=== PATIENT | female | born 1960 | race Caucasian/White ===

== ENCOUNTER → 2018-01-28 10:54 | Outpatient (CLI) | payer OTHER, SELFPAY ==
[2018-01-28 11:11] LABS: Bacteria Urine None Seen
[2018-01-28 12:41] LABS: Appearance Urine UA CLEAR; Bilirubin Urine UA NEGATIVE (NEGATIVE); Color Urine UA YELLOW; Glucose Urine UA NEGATIVE (Normal); Ketones Urine UA NEGATIVE (NEGATIVE); Leukocyte Esterase Urine UA NEGATIVE (NEGATIVE); Nitrite Urine UA Negative (Negative); Occult Blood Urine UA NEGATIVE (Negative); Protein Urine UA NEGATIVE (Negative); Urobilinogen Urine UA 0.2 E.U./dL (0.2)
[2018-01-28 12:55] LABS: Culture Indicated Urine Cult Not Indicated; RBC Urine 0-1/HPF (0-5/HPF); WBC Urine 0-1/HPF (0-5/HPF)
[2018-01-28 13:14] LABS: Add Manual Diff / Slide Review NO; Basophils Percent Auto 1.5 % (0-2); Eosinophils Percent Auto 2.7 % (2-4); Hematocrit 39.4 % (36-46); Hemoglobin 13.5 g/dL (12.0-16.0); Lymphocytes Percent Auto 18.9 % (25-40); Mean Corpuscular HGB Conc 34.3 % (30-36); Mean Corpuscular Hemoglobin 30.6 PG (26-34); Mean Corpuscular Volume 89.2 fL (80-100); Monocytes Percent Auto 8.4 % (3-14); Neutrophils Absolute Auto 2700 /uL (3000-5900); Neutrophils Percent Auto 68.5 % (50-75); Platelet Count 249 X10^3/uL (150-400); Red Blood Cell Count 4.42 X10^6/uL (4.0-5.2); Red Cell Distribution Width 12.8 % (11.6-14.8)
[2018-01-28 13:41] LABS: Alanine Aminotransferase 61 IU/L (9-52); Albumin Globulin Ratio 1.3 (1.0-2.8); Alkaline Phosphatase 54 U/L (38-126); Aspartate Aminotransferase 43 IU/L (14-36); Bilirubin Total 0.7 mg/dL (0.2-1.3); Blood Urea Nitrogen 14 mg/dL (7-17); Calcium 9.2 mg/dL (8.4-10.2); Carbon Dioxide 33 mmol/L (22-32); Chloride 93 mmol/L (98-107); Estimated Glomerular Filt Rate > 60.0 mL/min (>60); Glucose 82 mg/dL (70-100); HEMOLYSIS < 15 (0-50); Potassium 3.9 mmol/L (3.4-5.1); Sodium 134 mmol/L (137-145)
[2018-01-30 13:37] LABS: CCP Antibody (IgG) < 16 Units (< 20)
== END ==
PROVIDERS: PCP Family Medicine; Visit Provider Family Medicine
DX: G35 Multiple sclerosis (principal); N39.0 Urinary tract infection, site not specified
CPT/HCPCS: 36415; 80053; 81001; 83516; 85025; 87798

== ENCOUNTER → 2018-06-05 07:55 | Outpatient (CLI) | payer OTHER, SELFPAY ==
--- NOTE | 2018-06-05 07:56 | DI.US.S_ITS ---
PROCEDURE: US ABDOMEN COMPLETE INDICATIONS: RIGHT UPPER QUADRANT PAIN TECHNIQUE: Real-time scanning was performed of the abdominal and retroperitoneal organs, with image documentation. COMPARISON: None. FINDINGS: Liver: Liver is normal in size and homogeneous in echotexture. Gallbladder: No gallstones identified. Normal gallbladder wall. No pericholecystic fluid. Negative sonographic Silveira sign. Biliary ducts: Intrahepatic bile ducts are non-dilated. Extrahepatic bile duct caliber measures 3.8 mm. Normal is 6-7 mm or less in diameter, or 10 mm or less post-cholecystectomy. Pancreas: Visualized portions of the pancreas are sonographically normal. Spleen: Spleen is normal in size and homogeneous in echotexture. Kidneys: Kidneys are normal in size and echotexture. Right kidney measures 10.9 cm long; left kidney measures 10.1 cm long. No hydronephrosis or nephrolithiasis. No solid masses. Aorta: Visualized aorta is normal in caliber at less than 3 cm. Iliacs: Proximal common iliac arteries are normal in caliber at less than 2.5 cm. IVC: Intrahepatic inferior vena cava is patent. Miscellaneous: No free abdominal fluid. IMPRESSION: No source for right upper quadrant pain identified sonographically. Dictated by: Andrey PARKER Interpreted: Niko Ceja MD on 06/05/2018 at 8:37 Approved by: Niko Ceja M.D. on 06/05/2018 at 13:19
== END ==
PROVIDERS: PCP Family Medicine; Visit Provider Family Medicine
DX: R10.11 Right upper quadrant pain (principal)
CPT/HCPCS: 76700

== ENCOUNTER → 2018-07-31 15:01 | Outpatient (CLI) | payer OTHER, SELFPAY ==
[2018-07-31 15:19] LABS: RBC Urine None Seen (0-5/HPF)
[2018-07-31 16:00] LABS: Add Manual Diff / Slide Review NO; Basophils Percent Auto 1.2 % (0-2); Eosinophils Percent Auto 2.8 % (2-4); Hemoglobin 13.7 g/dL (12.0-16.0); Mean Corpuscular HGB Conc 33.5 % (30-36); Mean Corpuscular Hemoglobin 30.6 PG (26-34); Mean Corpuscular Volume 91.2 fL (80-100); Monocytes Percent Auto 10.5 % (3-14); Neutrophils Absolute Auto 2900 /uL (3000-5900); Neutrophils Percent Auto 61.5 % (50-75); Platelet Count 238 X10^3/uL (150-400); Red Blood Cell Count 4.49 X10^6/uL (4.0-5.2); Red Cell Distribution Width 13.5 % (11.6-14.8); White Blood Cell Count 4.8 X10^3/uL (4.5-11.0)
[2018-07-31 16:11] LABS: Alanine Aminotransferase 80 IU/L (9-52); Albumin 4.2 g/dL (3.5-5.0); Albumin Globulin Ratio 1.7 (1.0-2.8); Alkaline Phosphatase 57 U/L (38-126); Aspartate Aminotransferase 50 IU/L (14-36); Bilirubin Total 0.6 mg/dL (0.2-1.3); Bilirubin Unconjugated 0.4 mg/dL (0.0-1.1); Globulin 2.5 g/dL (1.7-4.1); HEMOLYSIS < 15 (0-50); Total Protein 6.7 g/dL (6.3-8.2)
[2018-07-31 16:23] LABS: Appearance Urine UA CLEAR; Bilirubin Urine UA NEGATIVE (NEGATIVE); Color Urine UA YELLOW; Glucose Urine UA NEGATIVE (Normal); Ketones Urine UA NEGATIVE (NEGATIVE); Leukocyte Esterase Urine UA NEGATIVE (NEGATIVE); Nitrite Urine UA NEGATIVE (Negative); Occult Blood Urine UA NEGATIVE (Negative); Protein Urine UA NEGATIVE (Negative); Urobilinogen Urine UA 0.2 E.U./dL (0.2); pH Urine UA 6.5 (4.5-8.0)
[2018-07-31 16:38] LABS: Bacteria Urine Occasional (0-1); Culture Indicated Urine Specimen Cultured; Squamous Epithelial Cell Urine 0-1 /HPF; WBC Urine 5-10/HPF (0-5/HPF)
[2018-08-02 13:53] LABS: Immunoglobulin A 174 mg/dL (81-463); Immunoglobulin M, Quantitative 66 mg/dL (48-271)
[2018-08-06 10:31] LABS: IgG Subclass 1 479 mg/dL (382-929); IgG Subclass 2 269 mg/dL (241-700); IgG Subclass 3 41 mg/dL (22-178); IgG Subclass 4 40.1 mg/dL (4.0-86.0); IgG Total 821 mg/dL (694-1618)
== END ==
PROVIDERS: PCP Family Medicine; Visit Provider Family Medicine
DX: G35 Multiple sclerosis (principal); Z79.899 Other long term (current) drug therapy
CPT/HCPCS: 80076; 81001; 82784; 85025; 87077; 87086; 87186

== ENCOUNTER → 2018-08-29 12:58 | Outpatient (CLI) | payer OTHER, SELFPAY ==
--- NOTE | 2018-08-29 | DI.MRI.S_ITS ---
PROCEDURE: MR HEAD/BRAIN WO CON INDICATIONS: multiple sclerosis TECHNIQUE: Non-contrast axial T1 spin echo, axial T2 fast spin echo, sagittal and axial FLAIR, coronal T2 fast spin echo, axial gradient echo, axial diffusion and ADC through the brain. COMPARISON: [facility], MR, BRAIN W&WO CONTRAST, 04/15/2017, 13:08. FINDINGS: Image quality: Excellent. CSF spaces: Ventricles appear symmetric in size and shape. Basal cisterns are patent. No extra-axial fluid collections. Brain: No intracranial bleeds or mass effects. There is cerebral volume loss for age. Is a mild degree of scattered punctate high FLAIR signal foci within the callosal, pericallosal, periventricular, and subcortical white matter. The number of white matter lesions has increased slightly, as has the signal intensity.. Brainstem appears normal. Diffusion-weighted images show no acute ischemic insults. No chronic ischemic insults. Normal intravascular flow voids are present. Skull and face: Calvarial bone marrow is normal in signal. Orbits are normal. Sinuses: Bilateral maxillary sinus retention cysts are present. Sinuses are otherwise clear. Mastoids are clear. IMPRESSION: Slight increase in mild degree of white matter disease, compatible with multiple sclerosis. 1. Slight increase in degree of white matter disease, compatible with multiple sclerosis. Dictated by: Lindsay Morejon M.D. on 08/29/2018 at 13:44 Approved by: Lindsay Morejon M.D. on 08/29/2018 at 13:52
--- NOTE | 2018-08-29 13:00 | DI.MRI.S_ITS ---
PROCEDURE: MR CERVICAL SPINE WO CON INDICATIONS: multiple sclerosis TECHNIQUE: Noncontrast sagittal T1 spin echo and T2 fast spin echo, sagittal STIR, foraminal oblique sagittal T2 fast spin echo, and axial gradient echo or T2 fast spin echo through the cervical spine. COMPARISON: [facility], MR, T-SPINE W&WO CONTRAST, 04/15/2017, 13:52. [facility], MR, C-SPINE W&WO CONTRAST, 04/15/2017, 13:33. FINDINGS: Image quality: Excellent. Alignment and Curvature: Straightening of the normal cervical lordosis. Diffuse endplate spurring, most predominantly at C5-C6 and C6-C7. Bone Marrow: Marrow demonstrates normal overall signal. Spinal Cord: Previously described cord signal changes predominantly at the C2 level are grossly unchanged on equivalent pulse sequences however no contrast-enhanced images are available. Paraspinous Soft Tissues: No paravertebral masses. Nonspecific thyroid lesion in the left lobe, as before. C2-C3: Asymmetric left facet arthropathy. No canal or right foraminal stenosis. Moderate left foraminal stenosis related to facet hypertrophy. This is grossly unchanged. C3-C4: Redemonstration of left paracentral disc protrusion, unchanged. There is associated mild central canal narrowing. No definite foraminal stenoses. C4-C5: Bilateral uncovertebral arthropathy and posterior intervening disc osteophyte complex, and bilateral facet disease. Mild canal narrowing. Mild bilateral foraminal stenoses. No interval change C5-C6: Bilateral uncovertebral arthropathy and posterior intervening disc osteophyte complex which is asymmetric, right greater than left, and bilateral facet arthropathy. Mild central canal narrowing. Moderate to severe right foraminal stenosis without definite interval change. Mild left foraminal narrowing C6-C7: Bilateral uncovertebral arthropathy and posterior intervening disc osteophyte complex, and bilateral facet arthropathy. Moderate canal stenosis. Mild right and moderate left foraminal narrowing. Overall, no interval change C7-T1: No canal or foraminal stenosis. At the T4 level, there is suggestion of cord signal change and T2 hyperintensity (image 9 series 17) however this is not fully included on the exam and further evaluation could be performed with dedicated thoracic spine MRI with and without contrast. This is new or more conspicuous on similar pulse sequences from the prior study. IMPRESSION: Overall, no interval change in cord signal abnormality at the C2 level since 04/15/17 although no contrast-enhanced pulse sequences were obtained. At the T4 level, suggestion of cord signal abnormality which is not entirely included on exam [id number]. Technically, cannot exclude volume averaging artifact. Therefore consider further evaluation with dedicated thoracic spine MRI with and without contrast No interval change in diffuse cervical disc degeneration and facet arthropathy, with straightening of the normal cervical lordosis. Moderate C6-C7 canal stenosis as before. Moderate to severe right C5-C6 foraminal narrowing, unchanged. Moderate left C6-C7 foraminal narrowing as before. Dictated by: Charlie Bee M.D. on 08/29/2018 at 14:08 Approved by: Charlie Bee M.D. on 08/29/2018 at 14:58
== END ==
PROVIDERS: PCP Family Medicine; Visit Provider Family Medicine
DX: G35 Multiple sclerosis (principal); G62.9 Polyneuropathy, unspecified; M48.02 Spinal stenosis, cervical region; M50.31 Other cervical disc degeneration, high cervical region; M47.812 Spondylosis without myelopathy or radiculopathy, cervical region
CPT/HCPCS: 70551; 72141

== ENCOUNTER → 2018-09-04 11:58 | Outpatient (CLI) | payer OTHER, SELFPAY ==
[2018-09-04 12:01] LABS: RBC Urine None Seen (0-5/HPF)
[2018-09-04 12:23] LABS: Appearance Urine UA CLEAR; Bilirubin Urine UA NEGATIVE (NEGATIVE); Color Urine UA YELLOW; Glucose Urine UA NEGATIVE (Negative); Ketones Urine UA NEGATIVE (NEGATIVE); Leukocyte Esterase Urine UA NEGATIVE (NEGATIVE); Nitrite Urine UA NEGATIVE (Negative); Occult Blood Urine UA NEGATIVE (Negative); Protein Urine UA NEGATIVE (Negative); Specific Gravity Urine UA 1.015 (1.000-1.035); Urobilinogen Urine UA 0.2 E.U./dL (0.2); pH Urine UA 7.5 (4.5-8.0)
[2018-09-04 12:37] LABS: WBC Urine 1-5/HPF (0-5/HPF)
[2018-09-04 12:38] LABS: Bacteria Urine Occasional (0-1); Culture Indicated Urine Specimen Cultured; Urine Comments CULTURE REQUESTED
== END ==
PROVIDERS: PCP Family Medicine; Visit Provider Family Medicine
DX: G35 Multiple sclerosis (principal)
CPT/HCPCS: 81001; 87086

== ENCOUNTER → 2019-02-10 08:50 | Outpatient (CLI) | payer OTHER, SELFPAY ==
[2019-02-10 08:55] LABS: Bacteria Urine None Seen; RBC Urine None Seen (0-5/HPF); WBC Urine None Seen (0-5/HPF)
[2019-02-10 10:02] LABS: Add Manual Diff / Slide Review NO; Basophils Absolute Auto 100 /uL (0-100); Basophils Percent Auto 1.3 % (0-2); Eosinophils Absolute Auto 100 /uL (0-450); Eosinophils Percent Auto 2.5 % (2-4); Hematocrit 38.1 % (36-46); Hemoglobin 12.8 g/dL (12.0-16.0); Lymphocytes Absolute Auto 900 /uL (1100-4500); Lymphocytes Percent Auto 19.9 % (25-40); Mean Corpuscular HGB Conc 33.6 % (30-36); Mean Corpuscular Hemoglobin 30.2 PG (26-34); Mean Corpuscular Volume 89.9 fL (80-100); Monocytes Absolute Auto 400 /uL (0-900); Monocytes Percent Auto 8.7 % (3-14); Neutrophils Absolute Auto 3100 /uL (1500-7000); Neutrophils Percent Auto 67.6 % (50-75); Platelet Count 222 X10^3/uL (150-400); Red Blood Cell Count 4.24 X10^6/uL (4.0-5.2); Red Cell Distribution Width 13.6 % (11.6-14.8); White Blood Cell Count 4.5 X10^3/uL (4.5-11.0)
[2019-02-10 10:45] LABS: Appearance Urine UA CLEAR; Bilirubin Urine UA NEGATIVE (NEGATIVE); Color Urine UA YELLOW; Glucose Urine UA NEGATIVE (Negative); Ketones Urine UA NEGATIVE (NEGATIVE); Leukocyte Esterase Urine UA NEGATIVE (NEGATIVE); Nitrite Urine UA NEGATIVE (Negative); Occult Blood Urine UA NEGATIVE (Negative); Protein Urine UA NEGATIVE (Negative); pH Urine UA 6.5 (4.5-8.0)
[2019-02-10 11:04] LABS: Culture Indicated Urine Cult Not Indicated; Mucus Urine 1+ (Negative); Squamous Epithelial Cell Urine 0-1 /HPF (0-5/HPF)
[2019-02-10 11:56] LABS: Alanine Aminotransferase 27 IU/L (9-52); Albumin 3.9 g/dL (3.5-5.0); Albumin Globulin Ratio 1.6 (1.0-2.8); Alkaline Phosphatase 55 U/L (38-126); Aspartate Aminotransferase 27 IU/L (14-36); BUN Creatinine Ratio 15.7 (6-22); Bilirubin Total 0.6 mg/dL (0.2-1.3); Blood Urea Nitrogen 11 mg/dL (7-17); Calcium 9.2 mg/dL (8.4-10.2); Carbon Dioxide 33 mmol/L (22-32); Chloride 97 mmol/L (98-107); Estimated Glomerular Filt Rate > 60.0 mL/min (>60); Globulin 2.4 g/dL (1.7-4.1); Glucose 95 mg/dL (80-110); HEMOLYSIS < 15 (0-50); Potassium 4.1 mmol/L (3.4-5.1); Sodium 136 mmol/L (137-145); Total Protein 6.3 g/dL (6.3-8.2)
[2019-02-12 11:26] LABS: CCP Antibody (IgG) < 16 Units (< 20)
[2019-02-12 13:39] LABS: IgG Subclass 1 458 mg/dL (382-929); IgG Subclass 2 245 mg/dL (241-700); IgG Subclass 3 36 mg/dL (22-178); IgG Subclass 4 35.9 mg/dL (4.0-86.0); IgG Total 771 mg/dL (694-1618)
[2019-02-12 14:39] LABS: Immunoglobulin A 152 mg/dL (81-463); Immunoglobulin M, Quantitative 50 mg/dL (48-271)
[2019-02-12 16:14] LABS: Hepatitis A Antibody IgM NONREACTIVE (NONREACTIVE); Hepatitis B Core Antibody IgM NONREACTIVE (NONREACTIVE); Hepatitis B Surface Antigen NONREACTIVE (NONREACTIVE); Hepatitis C Antibody NONREACTIVE
== END ==
PROVIDERS: PCP Family Medicine; Visit Provider Family Medicine
DX: G35 Multiple sclerosis (principal); R74.8 Abnormal levels of other serum enzymes
CPT/HCPCS: 36415; 80053; 80074; 81001; 82784; 82787; 85025; 86200

== ENCOUNTER → 2019-09-04 15:49 | Outpatient (CLI) | payer OTHER, SELFPAY ==
[2019-09-04 15:54] LABS: Bacteria Urine None Seen; RBC Urine None Seen (0-5/HPF)
[2019-09-04 16:22] LABS: Appearance Urine UA CLEAR; Bilirubin Urine UA NEGATIVE (NEGATIVE); Color Urine UA YELLOW; Glucose Urine UA NEGATIVE (Negative); Ketones Urine UA NEGATIVE (NEGATIVE); Leukocyte Esterase Urine UA NEGATIVE (NEGATIVE); Nitrite Urine UA NEGATIVE (Negative); Occult Blood Urine UA NEGATIVE (Negative); Protein Urine UA NEGATIVE (Negative); Urobilinogen Urine UA 0.2 E.U./dL (0.2)
[2019-09-04 16:37] LABS: Add Manual Diff / Slide Review NO; Basophils Absolute Auto 100 /uL (0-100); Basophils Percent Auto 1.3 % (0-2); Eosinophils Absolute Auto 100 /uL (0-450); Eosinophils Percent Auto 2.4 % (2-4); Hematocrit 38.7 % (36-46); Hemoglobin 13.1 g/dL (12.0-16.0); Lymphocytes Absolute Auto 1000 /uL (1100-4500); Lymphocytes Percent Auto 19.4 % (25-40); Mean Corpuscular HGB Conc 33.7 % (30-36); Mean Corpuscular Hemoglobin 30.8 PG (26-34); Mean Corpuscular Volume 91.4 fL (80-100); Monocytes Absolute Auto 600 /uL (0-900); Monocytes Percent Auto 11.7 % (3-14); Neutrophils Absolute Auto 3300 /uL (1500-7000); Neutrophils Percent Auto 65.2 % (50-75); Platelet Count 236 X10^3/uL (150-400); Red Blood Cell Count 4.23 X10^6/uL (4.0-5.2); Red Cell Distribution Width 13.2 % (11.6-14.8); White Blood Cell Count 5.1 X10^3/uL (4.5-11.0); pH Urine UA 5.5 (4.5-8.0)
[2019-09-04 16:38] LABS: Culture Indicated Urine Cult Not Indicated; Squamous Epithelial Cell Urine 0-1 /HPF (0-5/HPF); WBC Urine 0-1/HPF (0-5/HPF)
[2019-09-08 15:19] LABS: Immunoglobulin A 156 mg/dL (70-320); Immunoglobulin M, Quantitative 46 mg/dL (50-300)
[2019-09-09 08:59] LABS: IgG Subclass 1 491 mg/dL (382-929); IgG Subclass 2 256 mg/dL (241-700); IgG Subclass 3 40 mg/dL (22-178); IgG Subclass 4 34.5 mg/dL (4.0-86.0); IgG Total 884 mg/dL (600-1540)
== END ==
PROVIDERS: PCP Family Medicine; Visit Provider Family Medicine
DX: G35 Multiple sclerosis (principal); G62.9 Polyneuropathy, unspecified
CPT/HCPCS: 36415; 81001; 82784; 82787; 85025

== ENCOUNTER 2019-10-06 00:49 | Observation (INO) | payer OTHER, SELFPAY ==
[2019-10-06 00:55] VITALS: BP 113/63; PULSE 83; RESP 15; TEMP 37; O2SAT 98; BMI 29.1
--- NOTE | 2019-10-06 02:24 | ED.SYNCOPE ---
HPI - Syncope General Chief Complaint: Syncope Stated Complaint: GLF Source: patient and EMS Mode of arrival: EMS Limitations: no limitations History of Present Illness HPI narrative: Chief complaint: Syncope History of present illness: The patient is a 59-year-old female with a history of multiple sclerosis. The patient when out into the kitchen and he heard a very loud thud and went and found his on the floor. She was unconscious and had slid under the cabinet. She complained of a headache and woke up on the floor. She denied that she had any change in vision no blurred vision no diplopia. She denied any significant neck pain or being on any blood thinners. She denies a past history of myocardial infarction stroke diabetes mellitus but has had hypertension. She complained of a headache primarily on the right side of her head. She has had no history of seizures. She denied any diplopia or blind spots in front of her eyes. She has had no significant chest pain palpitations shortness of breath or cough but has been mildly dizzy and lightheaded she has had no nausea no vomiting no diarrhea melena or hematochezia. She has had no urinary symptoms. Related Data Home Medications Medication Instructions Recorded Confirmed zinc acetate [Galzin] 50 mg PO HS #0 11/24/16 05/27/18 baclofen 20 mg tablet See Rx Instructions PO TID tab 11/17/18 11/17/18 dextroamphetamine-amphetamine 7.5 15 mg PO DAILY tab 11/17/18 mg tablet dextroamphetamine-amphetamine 7.5 15 mg PO QPM tab 11/17/18 11/17/18 mg tablet rituximab IV 11/17/18 11/17/18 doxazosin 4 mg tablet 4 mg PO DAILY 07/21/19 07/21/19 gabapentin 300 mg capsule 600 mg PO DAILY cap 07/21/19 07/21/19 gabapentin 300 mg capsule 900 mg PO .evening cap 07/21/19 07/21/19 gabapentin 600 mg tablet 600 mg PO BEDTIME tab 07/21/19 07/21/19 venlafaxine 37.5 mg tablet 150 mg PO DAILY tab 07/21/19 07/21/19 Previous Rx's Medication Instructions Recorded DESOXIMETASONE (TOPICORT CREAM) 0 TP BID #1 tube 11/02/11 KETOCONAZOLE 2% (#NIZORAL OFF 2 % TP BID #60 gm 05/19/12 MARKET) EPINEPHRINE (ADRENACLICK) 0 IJ SEE INSTRUCTIONS PRN #2 units 05/08/17 fluconazole [Diflucan] 200 mg PO X1 #2 tab 11/05/17 estradiol 10 mcg vaginal tablet 10 mcg VAG 2XW #180 tab 03/26/19 furosemide 40 mg tablet 40 mg PO QDAY PRN #90 tab 05/29/19 hydrochlorothiazide 12.5 mg tablet See Rx Instructions .ROUTE 06/05/19 .COMPLEX #45 tablet albuterol sulfate 90 mcg/actuation See Rx Instructions .ROUTE 09/18/19 aerosol inhaler .COMPLEX #18 gram clonazepam 1 mg tablet 1 mg PO HSP #30 tab 09/21/19 zolpidem 10 mg tablet 10 mg PO HS PRN #30 tab 09/21/19 bupropion HCl 300 mg 24 hr tablet, 300 mg PO QDAY #90 tab 09/25/19 extended release Allergies Allergy/AdvReac Type Severity Reaction Status Date / Time shellfish derived Allergy Severe anaphylaxis Unverified 07/21/19 09:22 [SHELLFISH DERIVED] venom-honey bee Allergy Severe anaphylaxis Unverified 07/21/19 09:22 [BEE VENOM (HONEY BEE)] Sulfa (Sulfonamide Allergy Mild itching Unverified 07/21/19 09:22 Antibiotics) [SULFA (SULFONAMIDE ANTIBIOTICS)] Review of Systems Review of Systems Narrative: Review of systems were all negative except for those mentioned in the history of present illness. ROS Unobtainable: All systems reviewed & are unremarkable except as noted in HPI and below Patient History Medical History Depression (Chronic) History of vaginal delivery (Resolved) Hypertension (Chronic) MS (multiple sclerosis) (Chronic) Peripheral neuropathy (Chronic) Surgical History History of hysterectomy (Resolved 2005) Family History Father Lung cancer Mother Heart disease Diabetes mellitus [place] (myocardial infarction) Social History marital status: household members: spouse lives independently: Yes caregiver/support person: No housing: house occupational status: unemployed Smoking Status: Former smoker second hand exposure: No alcohol intake: former substance use type: does not use Smoking Status: Former smoker alcohol intake frequency: 0-2 drinks per day Substance Use Type: does not use Exam Narrative Exam Narrative: PHYSICAL EXAM: CONSTITUTIONAL: Awake, Alert, Oriented, Coherent, Cooperative who does not appear ill and toxic but is slow to respond. HEAD: AT/NC, she has dried bloody in her hair on the right temporoparietal scalp. In the posterior auricular crease along the auricle of the right year the patient has approximately 1.5 cm laceration in the crease. Over the scalp in the parietal region adjacent to the area of the right ear she has a transverse 1-1/2 cm laceration. EENT: PERRL, FROM of eyes, no discharge, no nystagmus No drainage from the ears, Tympanic membranes intact bilaterally without evidence of hemotympanum, clear EAC No epistaxis or nasal drainage Oral mucosa is moist and pink, posterior pharynx is without erythema or exudate. NECK: Supple, no obvious JVD, Trachea is midline without stridor, no palpable LN or masses. SPINE: No gross deformity, no palpable tenderness of the cervical, thoracic, lumbar or sacral spine. No CVA tenderness. THORAX: No deformity, retractions, chest wall tenderness, subcutaneous air or crepitice. LUNGS: Clear with symmetrical breath sounds without respiratory distress HEART: Normal heart tones, regular rhythm and rate without murmur. ABDOMEN: Soft, non-tender, normal bowel sounds without guarding, rebound, rigidity or palpable mass or organomegaly. EXTREMITIES: No edema, cyanosis, deformity or tenderness. SKIN: No rash, bruising, petechiae or purpura. NEURO: Awake, alert, oriented, conversive, cranial nerves II-XII are symmetrical and normal, moves all 4 extremities Initial Vital Signs Initial Vital Signs: Vital Signs Temperature 98.6 F 10/06/19 00:55 Pulse Rate 83 10/06/19 00:55 Respiratory Rate 15 10/06/19 00:55 Blood Pressure 113/63 10/06/19 00:55 Pulse Oximetry 98 10/06/19 00:55 Procedures Laceration Repair Laceration 1: Site: scalp Size (cm): 1.5 Description: linear Depth: simple, single layer Pre-repair: irrigated extensively Skin layer closed with: diego Number of sutures: 2 Laceration 2: Site: other Side (If applicable): right Size (cm): 1.5 Description: linear Depth: simple, single layer Pre-repair: irrigated extensively Skin layer closed with: dermabond Course Course Course Narrative: 0224: The patient is being evaluated for syncope with a fall and closed head injury at this time. 0353: The patient's CT scan of her head was negative for any acute intracranial pathology hemorrhage or traumatic injury. CT of the patient's cervical spine revealed no fracture or misalignment. There were degenerative changes with potential significant canal and foraminal stenosis at C6- 7. There is a left thyroid nodule present Laceration 1. Was located transversely across the parietal scalp and was closed with 2 diego. Laceration 2. Occurred at the junction of the crease between the scalp and posterior right ear which was not gaping and closed with Dermabond. Orders Ordered: Discontinued Medications Acetaminophen (Tylenol) 650 mg PO Q6HR PRN PRN Reason: Fever/Mild Pain (1-3) Last Admin: 10/06/19 09:46 Dose: 650 mg Documented by: [email or web address] Baclofen (Lioresal) 20 mg PO TID [facility] Last Admin: 10/06/19 10:25 Dose: 20 mg Documented by: BEAU Bisacodyl (Dulcolax) 10 mg CO DAILY PRN PRN Reason: Constipation Bupropion HCl (Wellbutrin Xl) 300 mg PO DAILY [facility] Last Admin: 10/06/19 09:16 Dose: 300 mg Documented by: AMADA Clonazepam (Klonopin) 0.5 mg PO BID [facility] Last Admin: 10/06/19 09:30 Dose: Not Given Documented by: BEAU Docusate Sodium (Colace) 100 mg PO BID PRN PRN Reason: Constipation Doxazosin Mesylate (Cardura) 4 mg PO DAILY [facility] Last Admin: 10/06/19 09:32 Dose: Not Given Documented by: BEAU Doxazosin Mesylate (Cardura) 4 mg PO BEDTIME [facility] Enoxaparin Sodium (Lovenox) 40 mg SUBCUT DAILY [facility] Last Admin: 10/06/19 09:17 Dose: 40 mg Documented by: JERRYE Gabapentin (Neurontin) 600 mg PO BEDTIME [facility] Gabapentin (Neurontin) 600 mg PO DAILY [facility] Last Admin: 10/06/19 09:15 Dose: 600 mg Documented by: AMADA Gabapentin (Neurontin) 900 mg PO BEDTIME [facility] Sodium Chloride (Normal Saline 0.9%) 1,000 mls @ 1,000 mls/hr IV BOLUS ONE Stop: 10/06/19 03:26 Last Admin: 10/06/19 03:00 Dose: 1,000 mls/hr Documented by: DONNA Sodium Chloride (Normal Saline 0.9%) 1,000 mls @ 100 mls/hr IV CONT [facility]ALE Last Admin: 10/06/19 06:24 Dose: 100 mls/hr Documented by: NATALIE Naloxone HCl (Narcan) 0.2 mg IV Q2MIN PRN PRN Reason: Opiate Reversal Dextroamphetamine- Amphetamine [ Adderall] 15 Mg 15 mg PO QPM [facility] Dextroamphetamine- Amphetamine [ Adderall] 15 Mg 15 mg PO DAILY [facility] Ondansetron HCl (Zofran) 4 mg IV Q8HR PRN PRN Reason: Nausea And Vomiting Venlafaxine HCl (Effexor) 150 mg PO DAILY [facility] Last Admin: 10/06/19 09:16 Dose: Not Given Documented by: AMADA Vital Signs Vital signs: Vital Signs - 8 hr 10/06/19 00:55 Temperature 98.6 F Pulse Rate 83 Respiratory Rate 15 Blood Pressure 113/63 Pulse Oximetry 98 MDM - Syncope Medical Records Attestation: I reviewed the patient's medical records. Lab Data Attestation: I reviewed the patient's lab results. Result diagrams: 10/06/19 02:51 10/06/19 02:51 Labs: Lab Results 10/06/19 10/06/19 10/06/19 Range/Units 02:51 02:51 02:51 WBC 7.2 (4.5-11.0) X10^3/uL RBC 4.32 (4.0-5.2) X10^6/uL Hgb 13.2 (12.0-16.0) g/dL Hct 39.7 (36-46) % MCV 91.8 (80-100) fL MCH 30.6 (26-34) PG MCHC 33.3 (30-36) % RDW 13.1 (11.6-14.8) % Plt Count 205 (150-400) X10^3/uL Neut % (Auto) 77.1 H (50-75) % Lymph % (Auto) 12.0 L (25-40) % [place] % (Auto) 8.8 (3-14) % Eos % (Auto) 1.0 L (2-4) % Baso % (Auto) 1.1 (0-2) % Neut # (Auto) 5600 (9027-4180) /uL Lymph # (Auto) 900 L (9894-2262) /uL [place] # (Auto) 600 (0-900) /uL Eos # (Auto) 100 (0-450) /uL Baso # (Auto) 100 (0-100) /uL Sodium 136 L (137-145) mmol/L Potassium 3.7 (3.4-5.1) mmol/L Chloride 98 (98-107) mmol/L Carbon Dioxide 33 H (22-32) mmol/L BUN 19 H (7-17) mg/dL Creatinine 0.80 (0.52-1.04) mg/dL Estimated GFR > 60.0 (>60) mL/min BUN/Creatinine Ratio 23.8 H (6-22) Glucose 91 (80-110) mg/dL Calcium 9.1 (8.4-10.2) mg/dL Magnesium 2.0 (1.6-2.3) mg/dL Total Bilirubin 0.4 (0.2-1.3) mg/dL AST 30 (14-36) IU/L ALT 23 (<35) IU/L Alkaline Phosphatase 55 (38-126) U/L Total Creatine Kinase 54 (30-135) U/L CK-MB (CK-2) TNP CK-MB (CK-2) Rel Index TNP Troponin I < 0.012 (0.01-0.034) ng/mL Total Protein 6.9 (6.3-8.2) g/dL Albumin 4.0 (3.5-5.0) g/dL Globulin 2.9 (1.7-4.1) g/dL Albumin/Globulin Ratio 1.4 (1.0-2.8) TSH 2.29 (0.47-4.68) uIU/mL Urine Dip Bedside Urine Glucose Negative Bedside Urine Bilirubin - Negative Bedside Urine Ketone - Negative Urine Specific [place] 1.015 Bedside Urine Occult Blood - Negative Bedside Urine pH 6.0 Bedside Urine Protein - Negative Bedside Urine Urobilinogen - Negative Bedside Urine Nitrite - Negative Bedside Urine Leukocytes - Negative Esterase ECG Data Attestation: I personally reviewed and interpreted this ECG as follows: Interpretation: The patient's EKG obtained on October 06 at 00:5 6:12 a.m. reveals a sinus rhythm with a right bundle branch block pattern. The QRS is 167 milliseconds duration. QTC is 435 milliseconds axis is normal. The patient has inverted T-waves in leads III V1 V2 and V3. The ST segments are nonspecific without any signs of acute ischemia at this time. Discharge Plan Departure Patient Disposition: Admitted as Observation Clinical Impression: Syncope and collapse Closed head injury Qualifiers: Encounter type: initial encounter Qualified Code(s): S09.90XA - Unspecified injury of head, initial encounter Discharge Date/Time: 10/06/19 06:06 Instructions: DI for Syncope in Adults (Fainting), Fainting, Echocardiogram, How to Prevent Falls Referrals: Grace Joshua MD [Primary Care Provider] - Admit Date/Time: 10/06/19 04:24 Admit Provider: Joseph Pope
--- NOTE | 2019-10-06 02:28 | DI.CT.S_ITS ---
PROCEDURE: CT HEAD/BRAIN WO CON INDICATIONS: syncope with collapse and closed head injury TECHNIQUE: Noncontrast 4.5 mm thick angled axial sections acquired from the foramen magnum to the vertex, with coronal and sagittal reformats. For radiation dose reduction, the following was used: automated exposure control, adjustment of mA and/or kV according to patient size. COMPARISON: None. FINDINGS: Image quality: Excellent. CSF spaces: Basal cisterns are patent. No extra-axial fluid collections. The ventricles are symmetric in size and shape. Brain: No intracranial bleeds or masses. There is cerebral volume loss for age, with resultant ventricular and sulcal prominence. There are periventricular and deep white matter chronic small vessel ischemic changes. There is minimal intracranial internal carotid artery atherosclerosis. Skull and face: Calvarium and visualized facial bones appear intact, without suspicious lesions. Sinuses: Visualized sinuses and mastoids are clear. IMPRESSION: CT head without acute intracranial abnormalities. No acute calvarial fractures. No significant discrepancy with the assistant casino shift manager radiology preliminary report. Dictated by: Kevon Neff M.D. on 10/06/2019 at 7:08 Approved by: Kevon Neff M.D. on 10/06/2019 at 7:09
--- NOTE | 2019-10-06 02:29 | DI.CT.S_ITS ---
PROCEDURE: CT CERVICAL SPINE WO CON INDICATIONS: syncope with closed head injury laceration right scalp TECHNIQUE: Noncontrast 3 mm thick sections acquired from the skull base to the T4 level. Sagittal and coronal reformats were then constructed. For radiation dose reduction, the following was used: automated exposure control, adjustment of mA and/or kV according to patient size. COMPARISON: None. FINDINGS: Image quality: Excellent. Bones: No acute fractures or dislocations. Straightening of cervical lordosis which may be due to patient positioning and/or concurrent muscle spasms. Moderate multilevel cervical spondylosis of the imaged spine most pronounced from C4-5 through C6-7. Degenerative endplate changes, endplate osteophyte formation, and disc space loss at these levels. There is moderate right neural foraminal narrowing at C5-6 with minimal spinal canal stenosis. There is moderate-severe bilateral neuroforaminal stenosis at the C6-7 with moderate spinal canal stenosis. Visualized superior ribs are intact. Soft tissues: Prevertebral soft tissues are normal in thickness. No paravertebral hematomas. No apical pneumothoraces. There is a 1.5 cm left thyroid nodule. IMPRESSION: 1. CT cervical spine without acute fracture or malalignment. Mild straightening of normal cervical lordosis likely related to positioning and/or concurrent muscle spasms. 2. Moderate multilevel cervical spondylosis most severe at C6-7 where there is moderate-severe bilateral neuroforaminal stenosis and moderate spinal canal stenosis. 3. A 1.5 cm left thyroid nodule. Consider dedicated outpatient thyroid ultrasound for further evaluation. No significant discrepancy with the communications project lead radiology preliminary report. Dictated by: Kevon Neff M.D. on 10/06/2019 at 7:10 Approved by: Kevon Neff M.D. on 10/06/2019 at 7:16
--- NOTE | 2019-10-06 02:56 | PC.NURSE ---
Pt ambulated with a steady gait
[2019-10-06 02:59] LABS: Add Manual Diff / Slide Review NO; Basophils Absolute Auto 100 /uL (0-100); Basophils Percent Auto 1.1 % (0-2); Eosinophils Absolute Auto 100 /uL (0-450); Hematocrit 39.7 % (36-46); Hemoglobin 13.2 g/dL (12.0-16.0); Lymphocytes Absolute Auto 900 /uL (1100-4500); Mean Corpuscular HGB Conc 33.3 % (30-36); Mean Corpuscular Hemoglobin 30.6 PG (26-34); Mean Corpuscular Volume 91.8 fL (80-100); Monocytes Absolute Auto 600 /uL (0-900); Monocytes Percent Auto 8.8 % (3-14); Neutrophils Absolute Auto 5600 /uL (1500-7000); Neutrophils Percent Auto 77.1 % (50-75); Platelet Count 205 X10^3/uL (150-400); Red Blood Cell Count 4.32 X10^6/uL (4.0-5.2); Red Cell Distribution Width 13.1 % (11.6-14.8); White Blood Cell Count 7.2 X10^3/uL (4.5-11.0)
[2019-10-06] MEDS: SODIUM CHLORIDE 0.9% 1,000 ML 1000 ML IV (03:00)
[2019-10-06 03:10] LABS: Alanine Aminotransferase 23 IU/L (<35); Albumin Globulin Ratio 1.4 (1.0-2.8); Alkaline Phosphatase 55 U/L (38-126); Aspartate Aminotransferase 30 IU/L (14-36); BUN Creatinine Ratio 23.8 (6-22); Bilirubin Total 0.4 mg/dL (0.2-1.3); Blood Urea Nitrogen 19 mg/dL (7-17); Calcium 9.1 mg/dL (8.4-10.2); Carbon Dioxide 33 mmol/L (22-32); Chloride 98 mmol/L (98-107); Creatine Kinase 54 U/L (30-135); Estimated Glomerular Filt Rate > 60.0 mL/min (>60); Globulin 2.9 g/dL (1.7-4.1); Glucose 91 mg/dL (80-110); HEMOLYSIS < 15 (0-50); Potassium 3.7 mmol/L (3.4-5.1); Sodium 136 mmol/L (137-145); Total Protein 6.9 g/dL (6.3-8.2)
[2019-10-06 03:22] LABS: Troponin I < 0.012 ng/mL (0.01-0.034)
[2019-10-06 05:03] VITALS: BMI 29.1
[2019-10-06 05:37] VITALS: BP 127/67; PULSE 57; RESP 19; O2SAT 97
--- NOTE | 2019-10-06 06:04 | PM.HP.1 ---
History of Present Illness History of Present Illness Date Patient Seen: 10/06/19 Time Patient Seen: 05:50 Chief complaint: GLF Narrative: Ms. Maxine Barton is a 59-year-old female with history significant for multiple sclerosis, hypertension, neuropathic pain, neuropathy and depression who presents to the ER via EMS after having a syncopal episode this morning. The patient was walking to her kitchen to get something to eat when she states she began to feel lightheaded. The next thing she knew she was on floor and her was trying to wake her up. Per report there was no seizure activity and the patient was unresponsive for about 3-4 minutes. The patient did sustain head laceration the right evangelical as well as behind the right ear. The patient continues to complain headache but denies visual changes or difficulty thinking or speaking. She has no lateralizing symptoms before or since the syncopal episode. She denies recent illness, fever or chills. She has no nasal congestion or sore throat. She denies chest pain or palpitations. She has had no shortness of breath cough or wheezing. She denies abdominal pain, nausea vomiting, diarrhea or constipation. She reports no urinary symptoms of urgency frequency or burning. Upon arrival to the ER the patient is afebrile with temperature 98.6?, heart rate of 83, blood pressure 113/63, respirations of 15 saturating 98% on room air. Head CT is obtained which is found to be unremarkable. A CT of the neck is also completed which finds degenerative disease and possible foraminal and canal stenosis at C6-7. On laboratory analysis the patient has white count of 7.2, hemoglobin of 13.2, hematocrit 39.7, blood sugar of 205. Her electrolytes are within normal limits and she has a BUN of 19 and creatinine 0.8 a nonfasting glucose of 91. Her liver functions are all within normal limits and she has a troponin that is less than 0.012. While in the ED the patient is 1/2 cm right temporal scalp laceration is sutured as well as a 1 cm postauricular laceration closed with Dermabond. The patient is admitted to the hospital for further evaluation of syncope. Patient History Medical History Depression (Chronic) History of vaginal delivery (Resolved) Hypertension (Chronic) MS (multiple sclerosis) (Chronic) Peripheral neuropathy (Chronic) Surgical History History of hysterectomy (Resolved 2005) Family & Social History Family History Father Lung cancer Mother Heart disease Diabetes mellitus [place] (myocardial infarction) Social History: household members spouse lives independently Yes caregiver/support person No Safety & Behavioral: Feels Safe in Current Yes Environment Tobacco & Substance use: Smoking Status Former smoker alcohol intake former alcohol intake frequency 0-2 drinks per day Substance Use Type does not use Comment: The patient lives in a single family home with her to whom she has been for 22 years. She finds family history of her father having lung cancer and her mother having heart disease and diabetes. Occupation: Unemployed Smoker: Previous smoker Alcohol: Previous alcohol consumption is quit Substance use: The patient denies recreation pharmaceuticals herbal or cannabis products Advanced directives: The patient states her desire to be full code and designates her to be surrogate decision maker. Meds Home Medications and Allergies Home Medications Medication Instructions Recorded Confirmed Type DESOXIMETASONE (TOPICORT CREAM) 0 TP BID #1 tube 11/02/11 05/27/18 Rx KETOCONAZOLE 2% (#NIZORAL OFF 2 % TP BID #60 gm 05/19/12 05/27/18 Rx MARKET) zinc acetate [Galzin] 50 mg PO HS #0 11/24/16 05/27/18 History EPINEPHRINE (ADRENACLICK) 0 IJ SEE INSTRUCTIONS PRN #2 units 05/08/17 05/27/18 Rx fluconazole [Diflucan] 200 mg PO X1 #2 tab 11/05/17 05/27/18 Rx baclofen 20 mg tablet See Rx Instructions PO TID tab 11/17/18 11/17/18 History dextroamphetamine-amphetamine 7.5 15 mg PO DAILY tab 11/17/18 History mg tablet dextroamphetamine-amphetamine 7.5 15 mg PO QPM tab 11/17/18 11/17/18 History mg tablet rituximab IV 11/17/18 11/17/18 History estradiol 10 mcg vaginal tablet 10 mcg VAG 2XW #180 tab 03/26/19 Rx furosemide 40 mg tablet 40 mg PO QDAY PRN #90 tab 05/29/19 Rx hydrochlorothiazide 12.5 mg tablet See Rx Instructions .ROUTE 06/05/19 Rx .COMPLEX #45 tablet doxazosin 4 mg tablet 4 mg PO DAILY 07/21/19 07/21/19 History gabapentin 300 mg capsule 600 mg PO DAILY cap 07/21/19 07/21/19 History gabapentin 300 mg capsule 900 mg PO .evening cap 07/21/19 07/21/19 History gabapentin 600 mg tablet 600 mg PO BEDTIME tab 07/21/19 07/21/19 History venlafaxine 37.5 mg tablet 150 mg PO DAILY tab 07/21/19 07/21/19 History albuterol sulfate 90 mcg/actuation See Rx Instructions .ROUTE 09/18/19 Rx aerosol inhaler .COMPLEX #18 gram clonazepam 1 mg tablet 1 mg PO HSP #30 tab 09/21/19 Rx zolpidem 10 mg tablet 10 mg PO HS PRN #30 tab 09/21/19 Rx bupropion HCl 300 mg 24 hr tablet, 300 mg PO QDAY #90 tab 09/25/19 Rx extended release Allergies Allergy/AdvReac Type Severity Reaction Status Date / Time shellfish derived Allergy Severe anaphylaxis Unverified 07/21/19 09:22 [SHELLFISH DERIVED] venom-honey bee Allergy Severe anaphylaxis Unverified 07/21/19 09:22 [BEE VENOM (HONEY BEE)] Sulfa (Sulfonamide Allergy Mild itching Unverified 07/21/19 09:22 Antibiotics) [SULFA (SULFONAMIDE ANTIBIOTICS)] Review of Systems Review of Systems Narrative: All systems reviewed and are found to be negative except as otherwise noted in HPI above. Exam Vital Signs (past 8 hours): - 10/06/19 00:55 10/06/19 05:37 Temperature 98.6 F Pulse Rate 83 57 L Respiratory Rate 15 19 Blood Pressure 113/63 127/67 Pulse Oximetry 98 97 Oxygen Delivery Method Room Air Narrative Exam Narrative: GENERAL APPEARANCE: well developed, well nourished, resting quietly in no acute distress HEENT: 1.56 cm laceration right evangelical, 1 cm laceration posterior to right ear, PERRLA, conjunctiva clear without ecchymosis, EOMs intact without nystagmus, no sinus tenderness to percussion, no epistaxis, mucous membranes are moist and pink without lesions or exudate. NECK/THYROID: Full range of motion, no tenderness, no step-offs, no JVD, no carotid bruit, no thyromegaly, trachea midline. LYMPH NODES: no cervical or supraclavicular lymphadenopathy. SKIN: [place], warm and dry HEART: regular rate and rhythm, S1-S2, no murmur, no rubs or gallops, brisk capillary refill, no edema LUNGS: clear to auscultation bilaterally, no coarseness crackles or wheezing, no cough present CHEST: Symmetrical movement, no accessory muscle use, good tidal volume, no pain to AP and lateral compression. ABDOMEN: Soft, no distention, no abdominal tenderness, no guarding or peritoneal signs, no organomegaly, no flank or suprapubic tenderness, active bowel tones. BACK: Nontender, no pain with straight leg raise EXTREMITIES: moves all extremities, estate tax examiner are strong and equal, extremity strength is 5/5 and symmetrical, no deformities or joint effusions. NEUROLOGIC: AAO x4, amnesic to the fall a, cranial nerves II-XII grossly intact, no ataxia, sensation intact to light touch, hearing grossly normal to speech. PSYCH: Alert and cooperative, appropriate with stable behavior Objective Labs Result Diagrams: 10/06/19 02:51 10/06/19 02:51 Labs: Laboratory Results - last 24 hr 10/06/19 10/06/19 02:51 02:51 WBC 7.2 RBC 4.32 Hgb 13.2 Hct 39.7 MCV 91.8 MCH 30.6 MCHC 33.3 RDW 13.1 Plt Count 205 Neut % (Auto) 77.1 H Lymph % (Auto) 12.0 L [place] % (Auto) 8.8 Eos % (Auto) 1.0 L Baso % (Auto) 1.1 Neut # (Auto) 5600 Lymph # (Auto) 900 L [place] # (Auto) 600 Eos # (Auto) 100 Baso # (Auto) 100 Sodium 136 L Potassium 3.7 Chloride 98 Carbon Dioxide 33 H BUN 19 H Creatinine 0.80 Estimated GFR > 60.0 BUN/Creatinine Ratio 23.8 H Glucose 91 Calcium 9.1 Magnesium 2.0 Total Bilirubin 0.4 AST 30 ALT 23 Alkaline Phosphatase 55 Total Creatine Kinase 54 CK-MB (CK-2) TNP CK-MB (CK-2) Rel Index TNP Troponin I < 0.012 Total Protein 6.9 Albumin 4.0 Globulin 2.9 Albumin/Globulin Ratio 1.4 Assessment & Plan Assessment & Plan narrative: This is a 59-year-old female patient who has been in her usual state health with no recent illness that became lightheaded and had syncopal episode falling to the floor stating laceration a right evangelical behind her right ear. Patient was reportedly unconscious for 3-4 minutes according to her . 1. Syncopal episode, resolved on admission, active The patient is walking became lightheaded and syncopal episode falling from standing to the floor striking her head. She was unresponsive for 3-4 minutes. Denies antecedent head pain lateralizing symptoms chest pain tachyarrhythmias or shortness of breath. CT of the head is unremarkable, CT of the neck finds degenerative changes and possible foraminal and canal stenosis at C6-7. No evidence of anemia electrolyte imbalance hypoglycemia and has negative orthostatics. The patient has multiple sclerosis states her last flare was 1.5 years ago. Obtain TSH and T4 levels Echocardiogram in the morning 2. Blunt head trauma, acute, present on admission, active Patient stained 1.5 cm laceration of the right evangelical that was sutured in the ER and 1 cm laceration behind the right ear closed with Dermabond. Patient has residual headache without visual changes in his alert and briskly responsive. Will monitor patient's neuro status. 3. Multiple sclerosis, chronic, stable. Patient has positive symptoms including pain muscle spasms and depression and fatigue consistent with MS. She has not had dizziness or vertigo, tremor, muscle weakness, numbness or tingling bowel or bladder issues. Continue home regimen of Adderall amphetamine, gabapentin and baclofen. Patient takes venlafaxine at the fracture of her provider for MS 4. Essential hypertension, chronic, stable Patient's blood pressure is well controlled at 113/63, orthostatics are negative. Patient takes furosemide as needed for hypertension. Continue patient's home regimen of doxazosin 4 mg daily. 5. Neuropathic pain, chronic, stable Continue patient's home regimen of gabapentin. 6. Depression chronic, stable. Continue patient's home regimen of bupropion 300 mg daily. Continue patient's home regimen of clonazepam 0.5 mg in the morning and at bedtime. VTE prophylaxis: SCDs, Lovenox Diet: Low-sodium IV fluid: Saline lock The patient is admitted to the hospital with syncopal episode of unknown etiology requiring additional evaluation and monitoring. Patient is admitted as observation with expected length of stay to be less than 2 midnights. Scores GCS [place] coma scale eye opening: Spontaneous [place] coma scale verbal response: Orientated [place] coma scale motor response: Obey commands Yasemin coma scale total score: 15
[2019-10-06] MEDS: SODIUM CHLORIDE 0.9% 1,000 ML 100 ML IV (06:24)
[2019-10-06 06:27] VITALS: BP 127/71; PULSE 62; RESP 18; TEMP 36.1; O2SAT 100
[2019-10-06 07:12] LABS: TSH w/ Reflex to FT4 2.29 uIU/mL (0.47-4.68)
[2019-10-06] MEDS: GABAPENTIN 600 MG TABLET PO (09:15)
[2019-10-06] MEDS: buPROPion XL 150 MG TAB 300 MG PO (09:16)
[2019-10-06] MEDS: ENOXAPARIN 40 MG/0.4 ML SYRINGE SUBCUT (09:17)
[2019-10-06 09:27] VITALS: BP 133/62; PULSE 72; RESP 16; TEMP 36.6; O2SAT 98
[2019-10-06] MEDS: ACETAMINOPHEN 325 MG TABLET 650 MG PO (09:46)
[2019-10-06] MEDS: BACLOFEN 10 MG TABLET 20 MG PO (10:25)
--- NOTE | 2019-10-06 10:55 | PC.NURSE ---
Day shift: Pt not tolerating calf SCD's. SHe states that they make her nueropathy worse. Encouraged to do foot waves as tolerated and when awake. Explained what the SCD's are for as well.
[2019-10-06 11:44] VITALS: BP 114/69; BP 123/71; BP 90/62; PULSE 63; PULSE 65; PULSE 74
--- NOTE | 2019-10-06 12:11 | CM.DANOTE ---
DCP: Case received, EMR reviewed and met with patient. Introduced self and role. Was able to meet with patient to obtain some history regarding her activity level, health, and living situation. DCP assessment completed with information currently available. Patient is a 59 year old female who admitted early this morning to the care of the hospitalist. PCP: Dr. Joshua. Payer: confirmed: [facility]. Patient came to the hospital via ambulance secondary to a ground level fall. Patient had fallen in her kitchen, and hit her head on a drawer causing a head laceration. Patient has a history of MS. Met with patient in her room. She is alert and oriented, pleasant. She resides in [place] with her spouse, Olman. She has been high functioning with her disease. She drives, does not use any DME supplies. She recently came back from [place] and [place], for she has children/grand children that reside there. Asked patient if she has had falls in the home before. Stated, she has, but it has been a while, and thinks that the recent fall occurred from one of her medications. P: DCP to continue to follow. Added P.T/O.T. orders after consulting with Dr. Butler, since she had the fall. Patient should be able to go home when she is medically stable. Yana Bonilla RN/Plant Nursery Worker
[2019-10-06 12:22] LABS: Appearance Urine UA CLEAR; Bilirubin Urine UA NEGATIVE (NEGATIVE); Color Urine UA YELLOW; Glucose Urine UA NEGATIVE (Negative); Ketones Urine UA NEGATIVE (NEGATIVE); Leukocyte Esterase Urine UA 1+ (NEGATIVE); Nitrite Urine UA NEGATIVE (Negative); Occult Blood Urine UA TRACE-INTACT (Negative); Protein Urine UA NEGATIVE (Negative); Specific Gravity Urine UA <=1.005 (1.000-1.035); Urobilinogen Urine UA 0.2 E.U./dL (0.2)
[2019-10-06 12:27] LABS: pH Urine UA 6.5 (4.5-8.0)
[2019-10-06 12:35] LABS: Amorphous Sediment Urine 1+; Bacteria Urine Few (2-10); Culture Indicated Urine Specimen Cultured; RBC Urine 0-1/HPF (0-5/HPF); Squamous Epithelial Cell Urine 1-5 /HPF (0-5/HPF); WBC Urine 1-5/HPF (0-5/HPF)
--- NOTE | 2019-10-06 13:20 | PC.NURSE ---
Day shift: Pt off unit at approx 1315. To private car driven by her spouse. Taken in WC by this medical writer. Pt has been steady on feet. Paperwork signed and all questions answered. Pt has all personal belongings. No new MD scripts. Pt instructed to f/u with PCP today or tomorrow morning. Head abrasion diego intact. Very minimal serosang discharge (approx <3ml).
--- NOTE | 2019-10-07 10:25 | PM.DS.1 ---
History of Present Illness History of Present Illness Date Patient Seen: 10/06/19 Chief complaint: GLF Narrative: Ms. Maxine Barton is a 59-year-old female with history significant for multiple sclerosis, hypertension, neuropathic pain, neuropathy and depression who presents to the ER via EMS after having a syncopal episode this morning. The patient was walking to her kitchen to get something to eat when she states she began to feel lightheaded. The next thing she knew she was on floor and her was trying to wake her up. Per report there was no seizure activity and the patient was unresponsive for about 3-4 minutes. The patient did sustain head laceration the right anabaptist as well as behind the right ear. The patient continues to complain headache but denies visual changes or difficulty thinking or speaking. She has no lateralizing symptoms before or since the syncopal episode. She denies recent illness, fever or chills. She has no nasal congestion or sore throat. She denies chest pain or palpitations. She has had no shortness of breath cough or wheezing. She denies abdominal pain, nausea vomiting, diarrhea or constipation. She reports no urinary symptoms of urgency frequency or burning. Upon arrival to the ER the patient is afebrile with temperature 98.6?, heart rate of 83, blood pressure 113/63, respirations of 15 saturating 98% on room air. Head CT is obtained which is found to be unremarkable. A CT of the neck is also completed which finds degenerative disease and possible foraminal and canal stenosis at C6-7. On laboratory analysis the patient has white count of 7.2, hemoglobin of 13.2, hematocrit 39.7, blood sugar of 205. Her electrolytes are within normal limits and she has a BUN of 19 and creatinine 0.8 a nonfasting glucose of 91. Her liver functions are all within normal limits and she has a troponin that is less than 0.012. While in the ED the patient is 1/2 cm right temporal scalp laceration is sutured as well as a 1 cm postauricular laceration closed with Dermabond. The patient is admitted to the hospital for further evaluation of syncope. Discharge Providers Provider Date of admission: 10/06/19 04:24 Discharge Date: 10/06/19 Primary care physician: Grace Joshua MD Consults: 10/06/19 05:16 Consult to Discharge Planning Routine Comment: 10/06/19 11:24 Consult to Occupational Therapy Evaluate & Treat Comment: Physician Instructions: Evaluate and treat Consult to Physical Therapy Evaluate & Treat Comment: Physician Instructions: Evaluate and Treat Discharge provider: Saida Butler MD Summary Hospital Course Discharge Diagnosis: 1. Syncope most likely due to hypotension 2. Orthostatic hypotension 3. Urinary incontinence 4. Multiple sclerosis 5. Hypertension 6. Peripheral neuropathy 7. Depression 8. Neuropathic pain Hospital Course: The patient is a 59-year-old female was admitted to the hospital for syncopal episode. The patient states that she has urinary incontinence. She takes doxazosin for her urinary symptoms. She increased her doxazosin from 4 mg to 5 mg. Patient stood up felt dizzy and fell down. She believes that her blood pressure was lower. She believes the doxazosin controlled that. She also explains stat as to why she fell. During her evaluation in the hospital the patient was found to be orthostatic. Her doxazosin was held. She remained on her other blood pressure medications including hydrochlorothiazide and furosemide. The following day the patient had orthostatic vital signs. She no longer with symptomatic when standing. She had no further dizziness. She was deemed appropriate and discharged home. As the patient's symptoms appeared most likely related to orthostasis no further interventions were done or procedures obtained during the hospital stay. Status at Discharge Cognitive/behavioral status at discharge: oriented Functional status at discharge: independent ambulation Overall status at discharge: patient is back to baseline Time Spent with Patient Time spent: Less than 30 minutes Exam Vital Signs (past 8 hours): Oxygen Delivery Method Room Air Oxygen Flow Rate 0 Narrative Exam Narrative: Pleasant female resting comfortably in no obvious distress Lungs: Clear to auscultation Cardiac exam: Regular rate and rhythm normal S1-S2 with a 2/6 systolic ejection murmur Abdomen: Soft nontender nondistended Extremities: No edema Objective Labs Result Diagrams: 10/06/19 02:51 10/06/19 02:51 Labs: Laboratory Results - last 24 hr 10/06/19 12:14 Urine Color Yellow Urine Appearance Clear Urine pH 6.5 Ur Specific [place] <=1.005 Urine Protein Negative Urine Glucose (UA) Negative Urine Ketones Negative Urine Occult Blood Trace-intact Urine Nitrate Negative Urine Bilirubin Negative Urine Urobilinogen 0.2 Ur Leukocyte Esterase 1+ H Urine RBC 0-1/hpf Urine WBC 1-5/hpf Ur Squamous Epith Cells 1-5 /hpf Amorphous Sediment 1+ Urine Bacteria Few (2-10) H Ur Culture Indicated? Specimen cultured Discharge Plan Discharge Plan Patient Disposition: Home Discharge orders & Medications Prescriptions: Continued doxazosin 4 mg tablet 4 mg PO DAILY RF: 0 venlafaxine 37.5 mg tablet 150 mg PO DAILY RF: 0 DESOXIMETASONE (TOPICORT CREAM) 0 TP BID Qty: 1 RF: 0 KETOCONAZOLE 2% (#NIZORAL OFF MARKET) 2 % TP BID Qty: 60 RF: 3 zinc acetate [Galzin] 50 MG capsule 50 mg PO HS Qty: 0 RF: 0 EPINEPHRINE (ADRENACLICK) 0 IJ SEE INSTRUCTIONS PRNQty: 2 RF: 11 fluconazole [Diflucan] 100 MG tablet 200 mg PO X1 Qty: 2 RF: 0 estradiol [Vagifem] 10 mcg tablet 10 mcg VAG 2XW Qty: 180 RF: 0 furosemide 40 mg tablet 40 mg PO QDAY PRN (Reason: edema) Qty: 90 RF: 1 hydrochlorothiazide 12.5 mg tablet See Rx Instructions .ROUTE .COMPLEX Qty: 45 RF: 3 Hold Instructions: Home Medication placed on hold at Doctor's office albuterol sulfate [Ventolin HFA] 90 mcg/actuation HFA aerosol inhaler See Rx Instructions .ROUTE .COMPLEX Qty: 18 RF: 3 clonazepam [Klonopin] 1 mg tablet 1 mg PO HSP Qty: 30 RF: 0 zolpidem 10 mg tablet 10 mg PO HS PRN (Reason: insomnia) Qty: 30 RF: 0 bupropion HCl 300 mg tablet extended release 24 hr 300 mg PO QDAY Qty: 90 RF: 3 dextroamphetamine-amphetamine [Adderall] 7.5 mg tablet 15 mg PO DAILY RF: 0 dextroamphetamine-amphetamine [Adderall] 7.5 mg tablet 15 mg PO QPM RF: 0 baclofen 20 mg tablet See Rx Instructions PO TID RF: 0 rituximab IV RF: 0 gabapentin 300 mg capsule 600 mg PO DAILY RF: 0 gabapentin 300 mg capsule 900 mg PO .evening RF: 0 gabapentin 600 mg tablet 600 mg PO BEDTIME RF: 0 Follow up/Referrals: Grace Joshua MD [Primary Care Provider] - Discharge Health Status Health Concerns: Follow up with PCP for Echocardiogram if appropriate Diet/Activity/Treatments Diet: Diet as Tolerated Activity: as tolerated Visit Report/Discharge Packet Instructions: DI for Syncope in Adults (Fainting), Fainting, Echocardiogram, How to Prevent Falls Visit Report Forms: Patient Portal/API, Stroke Signs & Symptoms Discharge Data Primary Care Provider: Grace Joshua Attending Provider: Joseph Pope Admit Date/Time: 10/06/19 04:24 Discharges patient from system. Discharge Date/Time: 10/06/19 13:23 Quality VTE Deep Vein Thrombosis/Pulmonary Embolism Present on Admission: No
--- NOTE | 2019-10-14 10:15 | PC.NURSE ---
Late entry: NS stop time 10/06 924
== END 2019-10-06 13:23 | disposition home or self-care (01) ==
LOC: ED 01:18 → AC 04:26
PROVIDERS: Admitting Provider Nurse Practitioner Adult Health; Emergency Provider Emergency Medicine; PCP Family Medicine; Visit Provider Nurse Practitioner Adult Health
DX: S01.01XA Laceration without foreign body of scalp, initial encounter (principal); R55 Syncope and collapse; R51 Headache; W18.30XA Fall on same level, unspecified, initial encounter; Y92.000 Kitchen of unspecified non-institutional (private) residence as the place of occurrence of the external cause; G35 Multiple sclerosis; I10 Essential (primary) hypertension; F32.9 Major depressive disorder, single episode, unspecified; R32 Unspecified urinary incontinence; G62.9 Polyneuropathy, unspecified
CPT/HCPCS: 12001; 36415; 70450; 72125; 80053; 81001; 81003; 82550; 82962; 83735; 84443; 84484; 85025; 87086; 93005; 94762; 96360; 96361; 96372; 99284; 99285; G0378; J1650

== ENCOUNTER → 2020-07-06 08:48 | Outpatient (CLI) | payer OTHER, SELFPAY ==
--- NOTE | 2020-07-06 08:51 | DI.MRI.S_ITS ---
PROCEDURE: MR CERVICAL SPINE WO/W CON INDICATIONS: Multiple Sclerosis TECHNIQUE: Noncontrast sagittal T1 spin echo and T2 fast spin echo, sagittal STIR, sagittal PD fast spin echo, foraminal oblique sagittal T2 fast spin echo, axial gradient echo or T2 fast spin echo through the cervical spine. After the administration of contrast, sagittal and axial T1 spin echo with fat saturation through the cervical spine. COMPARISON: [facility], MR, MR CERVICAL SPINE WO CON, 08/29/2018, 13:04. [facility], MR, C-SPINE W&WO CONTRAST, 02/24/2014, 9:05. FINDINGS: Image quality: Limited by patient motion artifact. Alignment and curvature: There is normal bony alignment. Marrow: Minimal reactive endplate changes noted adjacent to the C5-C6 and C6-C7 discs. Spinal cord: Increased T2 signal in the cervical spinal cord level of the C2 vertebral body is stable compared to prior exams. There is a new, small focus of increased T2 signal in the dorsal left cervical spinal cord level of the C5 vertebral body. No suspicious intramedullary enhancement. No cerebellar tonsillar herniation. Paraspinous soft tissues: No paravertebral masses or suspicious enhancement. C2-C3: Loss of disc signal. Minimal, diffuse disc bulge. Moderate left facet hypertrophy. No central stenosis. Moderate left neural foraminal narrowing. No neural compression. C3-C4: Loss of disc signal. Mild, diffuse disc bulge. Small central disc protrusion. Mild bilateral facet hypertrophy. No neural foraminal narrowing. No neural compression. C4-C5: Loss of disc signal and slight loss of disc height. Mild to moderate diffuse disc bulge. Moderate narrowing of the central canal. Mild bilateral facet hypertrophy. Mild right uncovertebral joint hypertrophy. Moderate right foraminal narrowing. No neural compression. C5-C6: Loss of disc signal and height. Moderate, diffuse disc bulge. Mild bilateral facet hypertrophy. Mild right uncovertebral joint hypertrophy. Severe narrowing of the central canal with slight compression of the cervical spinal cord. Moderate right neural foraminal narrowing. . C6-C7: Loss of disc signal and height. Moderate, diffuse disc bulge. Mild bilateral facet hypertrophy. Mild left uncovertebral joint hypertrophy. Severe narrowing of the central canal with slight compression of the cervical spinal cord. Moderate left neural foraminal narrowing. C7-T1: Normal appearance. IMPRESSION: 1. Increased T2 signal in the cervical spinal cord compatible with multiple sclerosis is stable at the level of the C2 vertebral body. New small focus of increased T2 signal in the cervical spinal cord level C5 vertebral body concerning for progression of multiple sclerosis. 2. No abnormal postcontrast enhancement. 3. Multilevel degenerative disease. 4. Multilevel facet and uncovertebral arthropathy. 5. Severe C5-C6 and C6-C7 central canal narrowing. 6. No significant neural foraminal narrowing. Dictated by: Tiffanie Yu MD, PhD on 07/06/2020 at 12:53 Approved by: Tiffanie Yu MD, PhD on 07/06/2020 at 13:03
--- NOTE | 2020-07-06 08:51 | DI.MRI.S_ITS ---
PROCEDURE: MR HEAD/BRAIN WO/W CON INDICATIONS: Multiple Sclerosis TECHNIQUE: Noncontrast sagittal and axial FLAIR, axial and coronal T2 fast spin echo, axial VIBE, axial gradient echo, axial diffusion and ADC through the brain. After the administration of contrast, axial and coronal VIBE with fat saturation through the brain. COMPARISON: [facility], MR, BRAIN W&WO CONTRAST, 04/15/2017, 13:08. [facility], MR, MR HEAD/BRAIN WO CON, 08/29/2018, 13:04. FINDINGS: Image quality: Excellent. CSF spaces: Ventricles are normal in size and shape. Basal cisterns are patent. No extra-axial fluid collections. Brain: No intracranial bleeds or mass effects. Chakraborty-white matter interface appears intact. There is diffuse bilateral scattered white matter signal changes, which appear grossly unchanged since 04/15/17 . No definite new lesion is seen. No abnormal intracranial enhancement. Diffusion weighted images show no acute ischemic insults. Brainstem appears normal. Normal intravascular flow voids are present. Skull and face: Calvarial marrow signal is normal. Orbits appear normal. Sinuses: Bilateral maxillary sinus disease partially visualized. IMPRESSION: Overall, grossly stable examination read demonstrating widespread white matter signal changes reflecting the patient's given clinical history of demyelinating disorder. No definite new interval change or associated enhancement. Bilateral maxillary sinus disease Dictated by: Charlie Bee M.D. on 07/06/2020 at 10:21 Approved by: Charlie Bee M.D. on 07/06/2020 at 10:29
== END ==
PROVIDERS: PCP Family Medicine; Referring Provider Family Medicine; Visit Provider Family Medicine
DX: G35 Multiple sclerosis (principal); J32.0 Chronic maxillary sinusitis; M50.31 Other cervical disc degeneration, high cervical region; M47.812 Spondylosis without myelopathy or radiculopathy, cervical region; M48.02 Spinal stenosis, cervical region
CPT/HCPCS: 70553; 72156; A9579

== ENCOUNTER → 2020-07-27 11:41 | Outpatient (CLI) | payer OTHER, SELFPAY ==
[2020-07-27 12:14] LABS: Add Manual Diff / Slide Review NO; Basophils Absolute Auto 100 /uL (0-100); Basophils Percent Auto 1.4 % (0-2); Eosinophils Absolute Auto 100 /uL (0-450); Eosinophils Percent Auto 3.1 % (2-4); Hematocrit 38.9 % (36-46); Hemoglobin 12.6 g/dL (12.0-16.0); Lymphocytes Absolute Auto 800 /uL (1100-4500); Lymphocytes Percent Auto 20.5 % (25-40); Mean Corpuscular HGB Conc 32.5 % (30-36); Mean Corpuscular Hemoglobin 29.9 PG (26-34); Monocytes Absolute Auto 400 /uL (0-900); Monocytes Percent Auto 9.8 % (3-14); Neutrophils Absolute Auto 2500 /uL (1500-7000); Neutrophils Percent Auto 65.2 % (50-75); Platelet Count 199 X10^3/uL (150-400); Red Blood Cell Count 4.22 X10^6/uL (4.0-5.2); Red Cell Distribution Width 13.7 % (11.6-14.8); White Blood Cell Count 3.8 X10^3/uL (4.5-11.0)
[2020-07-27 12:44] LABS: Alanine Aminotransferase 26 IU/L (<35); Albumin 4.1 g/dL (3.5-5.0); Albumin Globulin Ratio 1.5 (1.0-2.8); Alkaline Phosphatase 58 U/L (38-126); Aspartate Aminotransferase 30 IU/L (14-36); BUN Creatinine Ratio 23.2 (6-22); Bilirubin Total 0.6 mg/dL (0.2-1.3); Bilirubin Unconjugated 0.6 mg/dL (0.0-1.1); Blood Urea Nitrogen 16 mg/dL (7-17); Carbon Dioxide 34 mmol/L (22-32); Chloride 102 mmol/L (98-107); Estimated Glomerular Filt Rate > 60.0 mL/min (>60); Globulin 2.8 g/dL (1.7-4.1); Glucose 89 mg/dL (80-110); HEMOLYSIS < 15 (0-50); Potassium 3.9 mmol/L (3.4-5.1); Sodium 139 mmol/L (137-145); Total Protein 6.9 g/dL (6.3-8.2)
[2020-07-28 07:40] LABS: IGA 146 mg/dL (87-352); IGG 828 mg/dL (586-1602); IGM 43 mg/dL (26-217); Immunoglobulin A 142 mg/dL (87-352); Immunoglobulin M, Quantitative 42 mg/dL (26-217)
[2020-07-28 19:37] LABS: IgG Subclass 1 462 mg/dL (248-810); IgG Subclass 2 241 mg/dL (130-555); IgG Subclass 3 36 mg/dL (15-102); IgG Subclass 4 30 mg/dL (2-96); IgG Total 796 mg/dL (586-1602)
[2020-07-31 13:09] LABS: CCP Antibodies IgG/IgA 3 units (0-19)
== END ==
PROVIDERS: PCP Family Medicine; Referring Provider Family Medicine; Visit Provider Family Medicine
DX: G35 Multiple sclerosis (principal)
CPT/HCPCS: 36415; 80053; 80076; 82784; 82787; 85025; 86200; 87798

== ENCOUNTER → 2020-08-04 13:43 | Outpatient (CLI) | payer OTHER, SELFPAY ==
[2020-08-04 13:48] LABS: RBC Urine None Seen (0-5/HPF)
[2020-08-04 14:44] LABS: Appearance Urine UA CLEAR; Bilirubin Urine UA NEGATIVE (NEGATIVE); Color Urine UA YELLOW; Glucose Urine UA NEGATIVE (Negative); Ketones Urine UA NEGATIVE (NEGATIVE); Leukocyte Esterase Urine UA NEGATIVE (NEGATIVE); Nitrite Urine UA NEGATIVE (Negative); Occult Blood Urine UA NEGATIVE (Negative); Protein Urine UA NEGATIVE (Negative); Specific Gravity Urine UA 1.015 (1.000-1.035); Urobilinogen Urine UA 0.2 E.U./dL (0.2)
[2020-08-04 15:27] LABS: Bacteria Urine Few (2-10); Culture Indicated Urine Cult Not Indicated; Squamous Epithelial Cell Urine 0-1 /HPF (0-5/HPF); WBC Urine 0-1/HPF (0-5/HPF)
== END ==
PROVIDERS: PCP Family Medicine; Referring Provider Family Medicine; Visit Provider Family Medicine
DX: G35 Multiple sclerosis (principal)
CPT/HCPCS: 36415; 81001; 86355; 86357

== ENCOUNTER 2020-10-06 16:19 | Emergency (ER) | payer OTHER, SELFPAY ==
[2020-10-06] VITALS (10 sets, daily range): BP systolic 114–147; BP diastolic 55–80; PULSE 62–107; RESP 14–27; TEMP 36.5; O2SAT 97–100; BMI 30.9
--- NOTE | 2020-10-06 17:02 | DI.CT.S_ITS ---
PROCEDURE: CT HEAD/BRAIN WO CON INDICATIONS: syncope TECHNIQUE: Noncontrast 4.5 mm thick angled axial sections acquired from the foramen magnum to the vertex, with coronal and sagittal reformats. For radiation dose reduction, the following was used: automated exposure control, adjustment of mA and/or kV according to patient size. COMPARISON: [facility], MR, MR HEAD/BRAIN WO/W CON, 07/06/2020, 9:10. [facility], CT, CT HEAD/BRAIN WO CON, 10/06/2019, 2:30. [facility], MR, MR HEAD/BRAIN WO CON, 08/29/2018, 13:04. FINDINGS: Image quality: Excellent. CSF spaces: Basal cisterns are patent. No extra-axial fluid collections. The ventricles are symmetric in size and shape. Brain: No intracranial bleeds or masses. There is cerebral volume loss for age, with resultant ventricular and sulcal prominence. There are periventricular and deep white matter chronic small vessel ischemic changes. There is intracranial internal carotid artery atherosclerosis. Skull and face: Calvarium and visualized facial bones appear intact, without suspicious lesions. Incidental note is made of hyperostosis frontalis. This is not considered to be pathologic in a woman of this age. Sinuses: Visualized sinuses and mastoids are clear. IMPRESSION: No acute intracranial process is seen. Dictated by: Max Rivas M.D. on 10/06/2020 at 16:38 Approved by: Max Rivas M.D. on 10/06/2020 at 16:40
--- NOTE | 2020-10-06 17:02 | DI.RAD.S_ITS ---
PROCEDURE: XR CHEST 1V INDICATIONS: syncope TECHNIQUE: One view of the chest was acquired. COMPARISON: None. FINDINGS: Surgical changes and devices: Surgical clips in the left upper quadrant of the abdomen. Overlying monitoring leads. Lungs and pleura: Lungs are clear. No pleural effusions or pneumothorax. Mediastinum: Mediastinal contours appear normal. Heart size is normal. Bones and chest wall: No suspicious bony lesions. Degenerative changes in the right shoulder. Overlying soft tissues appear unremarkable. IMPRESSION: 1. No acute cardiopulmonary disease. Dictated by: Lauren Love M.D. on 10/06/2020 at 17:19 Approved by: Lauren Love M.D. on 10/06/2020 at 17:20
[2020-10-06] MEDS: SODIUM CHLORIDE 0.9% 1,000 ML 150 ML IV (17:08)
[2020-10-06 17:09] LABS: INR 1.1 (0.9-1.3); Prothrombin Time 12.1 SECONDS (10.1-12.7)
[2020-10-06 17:18] LABS: Add Manual Diff / Slide Review NO; Basophils Absolute Auto 0 /uL (0-100); Basophils Percent Auto 0.7 % (0-2); Eosinophils Absolute Auto 100 /uL (0-450); Eosinophils Percent Auto 1.7 % (2-4); Hematocrit 33.5 % (36-46); Hemoglobin 10.8 g/dL (12.0-16.0); Lymphocytes Absolute Auto 1000 /uL (1100-4500); Lymphocytes Percent Auto 15.5 % (25-40); Mean Corpuscular HGB Conc 32.3 % (30-36); Mean Corpuscular Hemoglobin 29.7 PG (26-34); Mean Corpuscular Volume 91.9 fL (80-100); Monocytes Absolute Auto 600 /uL (0-900); Monocytes Percent Auto 8.4 % (3-14); Neutrophils Absolute Auto 4900 /uL (1500-7000); Neutrophils Percent Auto 73.7 % (50-75); Platelet Count 198 X10^3/uL (150-400); Red Blood Cell Count 3.65 X10^6/uL (4.0-5.2); Red Cell Distribution Width 13.3 % (11.6-14.8); White Blood Cell Count 6.6 X10^3/uL (4.5-11.0)
--- NOTE | 2020-10-06 17:19 | PC.NURSE ---
Pt got up to use the rest room and had a near syncopal episode. Pt put back in the bed.
[2020-10-06 17:22] LABS: Alanine Aminotransferase 22 IU/L (<35); Albumin 3.4 g/dL (3.5-5.0); Albumin Globulin Ratio 1.4 (1.0-2.8); Alkaline Phosphatase 53 U/L (38-126); Aspartate Aminotransferase 40 IU/L (14-36); BUN Creatinine Ratio 33.3 (6-22); Bilirubin Total 0.3 mg/dL (0.2-1.3); Blood Urea Nitrogen 21 mg/dL (7-17); Calcium 8.4 mg/dL (8.4-10.2); Carbon Dioxide 30 mmol/L (22-32); Chloride 106 mmol/L (98-107); Creatine Kinase 57 U/L (30-135); Estimated Glomerular Filt Rate > 60.0 mL/min (>60); Globulin 2.5 g/dL (1.7-4.1); Glucose 90 mg/dL (80-110); HEMOLYSIS < 15 (0-50); Potassium 3.9 mmol/L (3.4-5.1); Sodium 136 mmol/L (137-145); Total Protein 5.9 g/dL (6.3-8.2)
[2020-10-06 17:24] LABS: PTT Partial Thromboplastin Tim 30 SECONDS (26.4-36.2)
[2020-10-06 17:31] LABS: NT-proBNP (BNP-Adult 18+) 132 pg/mL (<125)
[2020-10-06 17:34] LABS: Troponin I < 0.012 ng/mL (0.01-0.034)
[2020-10-06 17:36] LABS: COVID19 -Nasal RAPID Negative (Negative)
--- NOTE | 2020-10-06 18:21 | DI.CT.S_ITS ---
PROCEDURE: CT ANGIO HEAD AND NECK INDICATIONS: syncope TECHNIQUE: the administration of intravenous contrast, 1 mm thick sections acquired from the aortic arch through the [place] of [place]. Post-contrast 4.5 mm thick sections then re-acquired from the foramen magnum to the vertex. 3-dimensional [id number]-wehdvudkmw (MIP) and/or volume rendering reformats were acquired of the central intracranial vasculature and neck separately. Patient has shellfish allergy and was pre-medicated for contrast administration. There were no reported complications. COMPARISON: [facility], MR, MR HEAD/BRAIN WO CON, 08/29/2018, 13:04. [facility], MR, BRAIN W&WO CONTRAST, 04/15/2017, 13:08. [facility], CT, CT HEAD/BRAIN WO CON, 10/06/2020, 17:04. FINDINGS: Image quality: Excellent. BRAIN: CSF spaces: Ventricles are normal in size and shape. Basal cisterns are patent. No extra-axial fluid collections. Brain: No midline shift. No intracranial bleeds or masses. Chakraborty-white matter interface appears intact. Skull and face: Calvarium and facial bones appear intact, without suspicious lesions. Orbits appear normal. Sinuses: Axillary sinus mucous retention cysts. Sinuses and mastoids are otherwise clear. HEAD CT ANGIOGRAPHY: Anterior circulation: Intracranial internal carotid arteries are normal in size and flow. The flow within the paired anterior cerebral arteries is normal and symmetric. The flow within the middle cerebral arteries is normal and symmetric. The anterior communicating artery is seen. No aneurysms are seen. Posterior circulation: Visualized portions of the vertebral arteries demonstrate normal caliber, and join to form a normal appearing basilar artery. Right P1 is hypoplastic. There is normal variant origin of the right posterior cerebral artery from the right posterior communicating artery. Flow within the posterior cerebral arteries is otherwise normal and symmetric. No aneurysms are seen. NECK CT ANGIOGRAPHY: Carotid system: The great vessels demonstrate a conventional anatomy as they arise from the aortic arch. The origins of the common carotid arteries appear patent. The common carotid arteries demonstrate normal caliber and courses. The bifurcation regions both contain plaque-like calcification without significant stenosis. The internal carotid arteries demonstrate normal calibers and courses. Posterior circulation: The origins of the vertebral arteries both appear widely patent. The more superior extracranial portions of both vertebral arteries also demonstrate normal courses and calibers. They join to form a normal appearing basilar artery. Soft tissues: Visualized neck soft tissues demonstrate no suspicious abnormalities. Bones: No suspicious bony lesions. Severe degenerative disc and endplate changes at C5 through C7 with multilevel central canal narrowing. IMPRESSION: 1. Normal postcontrast scan of the brain. 2. No evidence of intracranial vascular occlusion or aneurysm. 3. Mild carotid disease at the bifurcations without significant stenosis. 4. No reported complications following premedication due to patient's known shellfish allergy. Any quantitative measurements of stenosis were performed using NASCET criteria. Dictated by: Lauren Love M.D. on 10/06/2020 at 19:43 Approved by: Lauren Love M.D. on 10/06/2020 at 19:58
--- NOTE | 2020-10-06 18:24 | ED.SYNCOPE ---
HPI - Syncope General Chief Complaint: Syncope Stated Complaint: pased out multiple times, dizzy Time Seen by Provider: 10/06/20 17:01 Source: patient Mode of arrival: Ambulatory History of Present Illness HPI narrative: Patient is a 60-year-old female with history of multiple sclerosis, hypertension, neuropathy presenting with a syncopal episode today. She states she actually fell 2 days ago while tripping on a hose landing on her right hip. Today she was icing a right hip got up and started walking she felt dizzy lightheaded lead up against the wall and then fell down. Her heard a thump and came rushing to her side. She was only out for a few seconds. She denies any chest pain or palpitations. She says she drinks water regularly. She has not had any fever chills no nausea vomiting or diarrhea. They said that this happened a couple weeks ago he fell sleep on the couch her woke her up to let her go up to the bed and she passed out again when she stood up at that time as well. Apparently in the emergency department today she went to use the restroom at extremely dizzy lightheaded and needed assistance. She is followed in [place] for her MS she has infusions every 6 weeks. Typically her MS flares are like optic neuritis. Related Data Home Medications Medication Instructions Recorded Confirmed zinc acetate [Galzin] 50 mg PO HS #0 11/24/16 10/20/19 baclofen 20 mg tablet See Rx Instructions PO TID tab 11/17/18 10/20/19 dextroamphetamine-amphetamine 7.5 15 mg PO QPM tab 11/17/18 10/20/19 mg tablet rituximab IV 11/17/18 10/20/19 doxazosin 4 mg tablet 4 mg PO DAILY 07/21/19 10/20/19 gabapentin 300 mg capsule 600 mg PO DAILY cap 07/21/19 10/20/19 gabapentin 300 mg capsule 900 mg PO .evening cap 07/21/19 10/20/19 gabapentin 600 mg tablet 600 mg PO BEDTIME tab 07/21/19 10/20/19 dextroamphetamine-amphetamine 7.5 21 mg PO DAILY tab 10/20/19 10/20/19 mg tablet venlafaxine 37.5 mg 75 mg PO BEDTIME cap 10/20/19 10/20/19 capsule,extended release 24 hr venlafaxine 37.5 mg 75 mg PO QPM cap 10/20/19 10/20/19 capsule,extended release 24 hr venlafaxine 37.5 mg tablet 75 mg PO .am tab 10/20/19 10/20/19 Previous Rx's Medication Instructions Recorded DESOXIMETASONE (TOPICORT CREAM) 0 TP BID #1 tube 11/02/11 KETOCONAZOLE 2% (#NIZORAL OFF 2 % TP BID #60 gm 05/19/12 MARKET) EPINEPHRINE (ADRENACLICK) 0 IJ SEE INSTRUCTIONS PRN #2 units 05/08/17 furosemide 40 mg tablet 40 mg PO QDAY PRN #90 tab 05/29/19 hydrochlorothiazide 12.5 mg tablet See Rx Instructions .ROUTE 06/05/19 .COMPLEX #45 tablet albuterol sulfate 90 mcg/actuation 2 puff INHALATION Q4-6H PRN #8.5 05/11/20 aerosol inhaler gram clonazepam 1 mg tablet 1 mg PO HSP #90 tab 07/20/20 zolpidem 10 mg tablet 10 mg PO HS PRN #90 tab 08/12/20 estradiol 10 mcg vaginal tablet 10 mcg VAG 2XW #30 tab 09/12/20 bupropion HCl 300 mg 24 hr tablet, See Rx Instructions .ROUTE 10/05/20 extended release .COMPLEX #90 tab Allergies Allergy/AdvReac Type Severity Reaction Status Date / Time shellfish derived Allergy Severe anaphylaxis Verified 10/06/20 16:29 [SHELLFISH DERIVED] venom-honey bee Allergy Severe anaphylaxis Verified 10/06/20 16:29 [BEE VENOM (HONEY BEE)] Sulfa (Sulfonamide Allergy Mild itching Verified 10/06/20 16:29 Antibiotics) [SULFA (SULFONAMIDE ANTIBIOTICS)] Review of Systems Review of Systems ROS Unobtainable: All systems reviewed & are unremarkable except as noted in HPI and below Constitutional Constitutional: Denies chills, Denies fever(s), Denies lethargy and Denies weakness Eyes Eyes: Denies change in vision, Denies eye discharge, Denies irritation and Denies loss of vision ENT Ears, Nose, Mouth, and Throat: Denies change in voice, Denies neck pain and Denies sore throat Cardiovascular Cardiovascular: Denies chest pain, Denies irregular heart rhythm, Reports lightheadedness, Denies palpitations, Denies dyspnea, Denies dyspnea on exertion and Denies orthopnea Respiratory Respiratory: Denies cough, Denies dyspnea, Denies dyspnea on exertion and Denies wheezing Gastrointestinal Gastrointestinal: Denies abdominal pain, Denies change in bowel habits, Denies diarrhea, Denies nausea and Denies vomiting Musculoskeletal Musculoskeletal: Denies back pain, Denies loss of height and Denies neck pain Integumentary/Breasts Skin/Breast: Denies pruritus, Denies erythema, Denies rash and Denies wounds Neurologic Neurologic: Denies confusion, Denies loss of vision and Denies weakness Psychiatric Psychiatric: Denies anxiety, Denies confusion, Denies depression, Denies homicidal ideation and Denies suicidal ideation Endocrine Endocrine: Denies palpitations Allergic/Immunologic Allergic/Immunologic: Denies wheezing Patient History Medical History Depression History of vaginal delivery Hypertension MS (multiple sclerosis) Peripheral neuropathy Surgical History History of hysterectomy (2005) Family History Father Lung cancer Mother Heart disease Diabetes mellitus [place] (myocardial infarction) Social History marital status: household members: spouse lives independently: Yes caregiver/support person: No housing: house occupational status: unemployed Smoking Status: Former smoker second hand exposure: No alcohol intake: former substance use type: does not use Smoking Status: Former smoker alcohol intake frequency: 0-2 drinks per day Substance Use Type: does not use Exam Initial Vital Signs Initial Vital Signs: Vital Signs Temperature 97.7 F 10/06/20 16:30 Pulse Rate 100 H 10/06/20 16:30 Respiratory Rate 14 10/06/20 16:30 Blood Pressure 141/74 H 10/06/20 16:30 Pulse Oximetry 99 10/06/20 16:30 GENERAL: Well-appearing, well-nourished and in no acute distress. HEENT: Head atraumatic,EOMI, pupils reactive, face symmetric, moist mucous membranes CARDIOVASCULAR: Regular rate and rhythm without murmurs, rubs or gallops. RESPIRATORY: Breath sounds equal bilaterally, no wheezes rales or rhonchi. ABDOMEN: Soft, nontender. Normoactive bowel sounds all 4 quadrants. No guarding or rebound. EXTREMITIES: Normal range of motion, no clubbing or edema. Neurovascularly intact NEUROLOGICAL: Alert and oriented x4.Normal gait and speech. Cranial nerves II through XII grossly intact. Good mlfypi-pj-hmgo, good zmuh-[id number], strength equal bilaterally, no dysarthria or aphasia, sensation in tact to soft touch bilaterally, no visual changes, no facial droop SKIN: Warm, dry, no laceration, no petechiae, no rashes or lesions. Scores NIH Stroke Scale Level of Conciousness: Alert, keenly responsive Ask month/age: Answers both questions correctly. Open/close eyes, close hand: Performs both tasks correctly Best gaze horizontal: Normal Visual sebastian: No visual loss Facial palsy: Normal symetrical movement Left arm drift: No drift for full 10 sec Right arm drift: No drift for full 10 sec Left leg drift: No drift for full 5 sec Right leg drift: No drift for full 5 sec Limb ataxia: Absent Sensory on face/arms/legs: Normal, no sensory loss Best language: No aphasia, normal Dysarthria: Normal Extinction or inattention: No abnormality Total NIH Stroke scale score: 0 Course Orders Ordered: ED Orders 10/06/20 16:39 Complete Blood Count AUTO DIFF Stat Comprehensive Metabolic Panel Stat NT-proBNP (BNP-Adult 18+) Stat Partial Thromboplastin Time Stat Prothrombin Time INR Stat Troponin & CK Cardiac Panel Stat 10/06/20 17:02 CT head/brain wo con Stat XR chest 1V Stat 10/06/20 17:06 COVID19 Stat 10/06/20 18:21 CT angio head and neck Stat 10/06/20 18:27 XR femur RT min 2V Stat XR hip w pel if done RT 2V Stat Discontinued Medications Diphenhydramine HCl (Diphenhydramine 50 Mg/Ml Vial) 25 mg IV NOW ONE Stop: 10/06/20 18:38 Last Admin: 10/06/20 18:41 Dose: 25 mg Documented by: HÉCTOR Sodium Chloride (Normal Saline 0.9%) 1,000 mls @ 150 mls/hr IV CONT WALE Last Infusion: 10/06/20 20:37 Dose: 0 mls/hr Documented by: JORGE ALBERTO Admin: 10/06/20 17:08 Dose: 150 mls/hr Documented by: MINDI Methylprednisolone (Methylprednisolone 125 Mg/2 Ml Vial) 125 mg IV NOW ONE Stop: 10/06/20 18:38 Last Admin: 10/06/20 18:41 Dose: 125 mg Documented by: HÉCTOR Vital Signs Vital signs: Vital Signs - 8 hr 10/06/20 16:30 10/06/20 17:31 10/06/20 18:00 Temperature 97.7 F Pulse Rate 100 H 72 64 Pulse Rate [Orthostatic Lying] Pulse Rate [Orthostatic Sitting] Pulse Rate [Orthostatic Standing] Respiratory Rate 14 Blood Pressure 141/74 H Blood Pressure [Orthostatic Lying] Blood Pressure [Orthostatic Sitting] Blood Pressure [Orthostatic Standing] Pulse Oximetry 99 99 100 10/06/20 18:12 10/06/20 19:11 10/06/20 19:30 Temperature Pulse Rate 73 66 68 Pulse Rate [Orthostatic Lying] Pulse Rate [Orthostatic Sitting] Pulse Rate [Orthostatic Standing] Respiratory Rate 15 15 Blood Pressure 147/80 H 142/68 H 142/62 H Blood Pressure [Orthostatic Lying] Blood Pressure [Orthostatic Sitting] Blood Pressure [Orthostatic Standing] Pulse Oximetry 100 97 100 10/06/20 19:52 10/06/20 19:59 10/06/20 20:00 Temperature Pulse Rate 63 70 Pulse Rate [Orthostatic Lying] 68 Pulse Rate [Orthostatic Sitting] 107 H Pulse Rate [Orthostatic Standing] 62 Respiratory Rate 15 27 H Blood Pressure Blood Pressure [Orthostatic Lying] 136/63 Blood Pressure [Orthostatic Sitting] 114/55 L Blood Pressure [Orthostatic Standing] 139/67 Pulse Oximetry 100 100 10/06/20 20:01 Temperature Pulse Rate 69 Pulse Rate [Orthostatic Lying] Pulse Rate [Orthostatic Sitting] Pulse Rate [Orthostatic Standing] Respiratory Rate 21 Blood Pressure 132/63 Blood Pressure [Orthostatic Lying] Blood Pressure [Orthostatic Sitting] Blood Pressure [Orthostatic Standing] Pulse Oximetry 100 MDM - Syncope Lab Data Attestation: I reviewed the patient's lab results. Result diagrams: 10/06/20 16:39 10/06/20 16:39 Labs: Lab Results 10/06/20 10/06/20 10/06/20 Range/Units 16:39 16:39 16:39 WBC 6.6 (4.5-11.0) X10^3/uL RBC 3.65 L (4.0-5.2) X10^6/uL Hgb 10.8 L (12.0-16.0) g/dL Hct 33.5 L (36-46) % MCV 91.9 (80-100) fL MCH 29.7 (26-34) PG MCHC 32.3 (30-36) % RDW 13.3 (11.6-14.8) % Plt Count 198 (150-400) X10^3/uL Neut % (Auto) 73.7 (50-75) % Lymph % (Auto) 15.5 L (25-40) % [place] % (Auto) 8.4 (3-14) % Eos % (Auto) 1.7 L (2-4) % Baso % (Auto) 0.7 (0-2) % Neut # (Auto) 4900 (2423-1353) /uL Lymph # (Auto) 1000 L (4810-5801) /uL [place] # (Auto) 600 (0-900) /uL Eos # (Auto) 100 (0-450) /uL Baso # (Auto) 0 (0-100) /uL PT 12.1 (10.1-12.7) SECONDS INR 1.1 (0.9-1.3) APTT (26.4-36.2) SECONDS Sodium (137-145) mmol/L Potassium (3.4-5.1) mmol/L Chloride (98-107) mmol/L Carbon Dioxide (22-32) mmol/L BUN (7-17) mg/dL Creatinine (0.52-1.04) mg/dL Estimated GFR (>60) mL/min BUN/Creatinine Ratio (6-22) Glucose (80-110) mg/dL Calcium (8.4-10.2) mg/dL Total Bilirubin (0.2-1.3) mg/dL AST (14-36) IU/L ALT (<35) IU/L Alkaline Phosphatase (38-126) U/L Total Creatine Kinase (30-135) U/L CK-MB (CK-2) CK-MB (CK-2) Rel Index Troponin I (0.01-0.034) ng/mL NT-Pro-B Natriuret Pep 132 H (<125) pg/mL Total Protein (6.3-8.2) g/dL Albumin (3.5-5.0) g/dL Globulin (1.7-4.1) g/dL Albumin/Globulin Ratio (1.0-2.8) SARS-CoV-2 (PCR) (Negative) 10/06/20 10/06/20 10/06/20 Range/Units 16:39 16:39 17:06 WBC (4.5-11.0) X10^3/uL RBC (4.0-5.2) X10^6/uL Hgb (12.0-16.0) g/dL Hct (36-46) % MCV (80-100) fL MCH (26-34) PG MCHC (30-36) % RDW (11.6-14.8) % Plt Count (150-400) X10^3/uL Neut % (Auto) (50-75) % Lymph % (Auto) (25-40) % [place] % (Auto) (3-14) % Eos % (Auto) (2-4) % Baso % (Auto) (0-2) % Neut # (Auto) (0164-1196) /uL Lymph # (Auto) (3395-6702) /uL [place] # (Auto) (0-900) /uL Eos # (Auto) (0-450) /uL Baso # (Auto) (0-100) /uL PT (10.1-12.7) SECONDS INR (0.9-1.3) APTT 30 (26.4-36.2) SECONDS Sodium 136 L (137-145) mmol/L Potassium 3.9 (3.4-5.1) mmol/L Chloride 106 (98-107) mmol/L Carbon Dioxide 30 (22-32) mmol/L BUN 21 H (7-17) mg/dL Creatinine 0.63 (0.52-1.04) mg/dL Estimated GFR > 60.0 (>60) mL/min BUN/Creatinine Ratio 33.3 H (6-22) Glucose 90 (80-110) mg/dL Calcium 8.4 (8.4-10.2) mg/dL Total Bilirubin 0.3 (0.2-1.3) mg/dL AST 40 H (14-36) IU/L ALT 22 (<35) IU/L Alkaline Phosphatase 53 (38-126) U/L Total Creatine Kinase 57 (30-135) U/L CK-MB (CK-2) TNP CK-MB (CK-2) Rel Index TNP Troponin I < 0.012 (0.01-0.034) ng/mL NT-Pro-B Natriuret Pep (<125) pg/mL Total Protein 5.9 L (6.3-8.2) g/dL Albumin 3.4 L (3.5-5.0) g/dL Globulin 2.5 (1.7-4.1) g/dL Albumin/Globulin Ratio 1.4 (1.0-2.8) SARS-CoV-2 (PCR) Negative (Negative) Urine Dip Bedside Urine Glucose Negative Bedside Urine Bilirubin - Negative Bedside Urine Ketone - Negative Urine Specific [place] 1.020 Bedside Urine Occult Blood - Negative Bedside Urine pH 6 Bedside Urine Protein - Negative Bedside Urine Urobilinogen - Negative Bedside Urine Nitrite - Negative Bedside Urine Leukocytes - Negative Esterase Imaging Data Chest x-ray: Radiologist's Impression: PROCEDURE: XR CHEST 1V INDICATIONS: syncope TECHNIQUE: One view of the chest was acquired. COMPARISON: None. FINDINGS: Surgical changes and devices: Surgical clips in the left upper quadrant of the abdomen. Overlying monitoring leads. Lungs and pleura: Lungs are clear. No pleural effusions or pneumothorax. Mediastinum: Mediastinal contours appear normal. Heart size is normal. Bones and chest wall: No suspicious bony lesions. Degenerative changes in the right shoulder. Overlying soft tissues appear unremarkable. IMPRESSION: 1. No acute cardiopulmonary disease. Dictated by: Lauren Love M.D. on 10/06/2020 at 17:19 Approved by: Lauren Love M.D. on 10/06/2020 at 17:20 CT scan - head: Radiologist's Impression: PROCEDURE: CT HEAD/BRAIN WO CON INDICATIONS: syncope TECHNIQUE: Noncontrast 4.5 mm thick angled axial sections acquired from the foramen magnum to the vertex, with coronal and sagittal reformats. For radiation dose reduction, the following was used: automated exposure control, adjustment of mA and/or kV according to patient size. COMPARISON: [facility], MR, MR HEAD/BRAIN WO/W CON, 07/06/2020, 9:10. [facility], CT, CT HEAD/BRAIN WO CON, 10/06/2019, 2:30. [facility], MR, MR HEAD/BRAIN WO CON, 08/29/2018, 13:04. FINDINGS: Image quality: Excellent. CSF spaces: Basal cisterns are patent. No extra-axial fluid collections. The ventricles are symmetric in size and shape. Brain: No intracranial bleeds or masses. There is cerebral volume loss for age, with resultant ventricular and sulcal prominence. There are periventricular and deep white matter chronic small vessel ischemic changes. There is intracranial internal carotid artery atherosclerosis. Skull and face: Calvarium and visualized facial bones appear intact, without suspicious lesions. Incidental note is made of hyperostosis frontalis. This is not considered to be pathologic in a woman of this age. Sinuses: Visualized sinuses and mastoids are clear. IMPRESSION: No acute intracranial process is seen. Dictated by: Max Rivas M.D. on 10/06/2020 at 16:38 CTA - brain/neck: Radiologist's Impression: PROCEDURE: CT ANGIO HEAD AND NECK INDICATIONS: syncope TECHNIQUE: the administration of intravenous contrast, 1 mm thick sections acquired from the aortic arch through the [place] of [place]. Post-contrast 4.5 mm thick sections then re-acquired from the foramen magnum to the vertex. 3-dimensional hdyxtmr-wtizzhszh-bdghtdhazr (MIP) and/or volume rendering reformats were acquired of the central intracranial vasculature and neck separately. Patient has shellfish allergy and was pre-medicated for contrast administration. There were no reported complications. COMPARISON: [facility], MR, MR HEAD/BRAIN WO CON, 08/29/2018, 13:04. [facility], MR, BRAIN W&WO CONTRAST, 04/15/2017, 13:08. [facility], CT, CT HEAD/BRAIN WO CON, 10/06/2020, 17:04. FINDINGS: Image quality: Excellent. BRAIN: CSF spaces: Ventricles are normal in size and shape. Basal cisterns are patent. No extra-axial fluid collections. Brain: No midline shift. No intracranial bleeds or masses. Chakraborty-white matter interface appears intact. Skull and face: Calvarium and facial bones appear intact, without suspicious lesions. Orbits appear normal. Sinuses: Axillary sinus mucous retention cysts. Sinuses and mastoids are otherwise clear. HEAD CT ANGIOGRAPHY: Anterior circulation: Intracranial internal carotid arteries are normal in size and flow. The flow within the paired anterior cerebral arteries is normal and symmetric. The flow within the middle cerebral arteries is normal and symmetric. The anterior communicating artery is seen. No aneurysms are seen. Posterior circulation: Visualized portions of the vertebral arteries demonstrate normal caliber, and join to form a normal appearing basilar artery. Right P1 is hypoplastic. There is normal variant origin of the right posterior cerebral artery from the right posterior communicating artery. Flow within the posterior cerebral arteries is otherwise normal and symmetric. No aneurysms are seen. NECK CT ANGIOGRAPHY: Carotid system: The great vessels demonstrate a conventional anatomy as they arise from the aortic arch. The origins of the common carotid arteries appear patent. The common carotid arteries demonstrate normal caliber and courses. The bifurcation regions both contain plaque-like calcification without significant stenosis. The internal carotid arteries demonstrate normal calibers and courses. Posterior circulation: The origins of the vertebral arteries both appear widely patent. The more superior extracranial portions of both vertebral arteries also demonstrate normal courses and calibers. They join to form a normal appearing basilar artery. Soft tissues: Visualized neck soft tissues demonstrate no suspicious abnormalities. Bones: No suspicious bony lesions. Severe degenerative disc and endplate changes at C5 through C7 with multilevel central canal narrowing. IMPRESSION: 1. Normal postcontrast scan of the brain. 2. No evidence of intracranial vascular occlusion or aneurysm. 3. Mild carotid disease at the bifurcations without significant stenosis. 4. No reported complications following premedication due to patient's known shellfish allergy. Any quantitative measurements of stenosis were performed using NASCET criteria. Dictated by: Lauren Love M.D. on 10/06/2020 at 19:43 Extremity x-ray #1: Radiologist's Impression: PROCEDURE: XR FEMUR RT MIN 2V INDICATIONS: fall pain TECHNIQUE: Two views of the femur were acquired. COMPARISON: None. FINDINGS: Bones: No fractures or dislocations. Decreased mineralization. Moderate degenerative joint space loss and spurring in the knee joint. Mild degenerative change at the femoral acetabular joint. No suspicious bony lesions. Soft tissues: No suspicious soft tissue calcifications or masses. IMPRESSION: Intact right femur. Dictated by: Lauren Love M.D. on 10/06/2020 at 19:58 Extremity x-ray #2: Radiologist's Impression: PROCEDURE: XR FEMUR RT MIN 2V INDICATIONS: fall pain TECHNIQUE: Two views of the femur were acquired. COMPARISON: None. FINDINGS: Bones: No fractures or dislocations. Decreased mineralization. Moderate degenerative joint space loss and spurring in the knee joint. Mild degenerative change at the femoral acetabular joint. No suspicious bony lesions. Soft tissues: No suspicious soft tissue calcifications or masses. IMPRESSION: Intact right femur. Dictated by: Lauren Love M.D. on 10/06/2020 at 19:58 ECG Data Attestation: I personally reviewed and interpreted this ECG as follows: Prior ECG tracings: available for review Interpretation: Normal sinus rhythm rate 75 p.r. interval 156 QRS [address] changes no T-wave inversions similar to previous EKG although previous EKG showed right bundle-branch block. MDM Narrative Medical decision making narrative: Patient is overall now feeling okay. She does have positive orthostatics heart rate increases to 107. She is given a L of fluid blood work is overall reassuring. CT and CT angio did not show any abnormality. Questionable MS flare however she states that her MS flares are not like this and this would be extremely atypical for her. She has no focal deficits. She is requesting to go home she has an appointment with her PCP 10/19/2020. She has ambulation trial in the ED and is able to walk quite a ways without feeling dizzy or lightheaded or having recurrent syncopal episode after normal L of saline. I discussed all findings with the patient and , Education has been performed regarding treatment plan, diagnosis, warning signs and symptoms and all concerns have been addressed. Verbally agree with and understood all of the above. Discharge Plan Departure Patient Disposition: Home Clinical Impression: Syncope due to orthostatic hypotension, Anemia Instructions: DI for Syncope in Adults (Fainting) Activity Restrictions/Additional Instructions: *You have been diagnosed with syncope, likely due to some mild dehydration *What to do: You may need to have something called a Holter monitor to monitor your heart rate this can be set up with her primary care provider. Increase her fluid intake over the next few days. He also need to have your blood levels recheck to her found to be slightly anemic. Please resume taking your multi vitamin. *Continue to take medications as directed *Follow up with your primary care provider in 2-3 days *Return to ER if you should have recurrent episode of passing out, weakness, numbness, tingling or any new, worsening or concerning symptoms Prescriptions: No Action venlafaxine 37.5 mg capsule,extended release 24hr 75 mg PO QPM RF: 0 venlafaxine 37.5 mg capsule,extended release 24hr 75 mg PO BEDTIME RF: 0 clonazepam [Klonopin] 1 mg tablet 1 mg PO HSP Qty: 90 RF: 0 doxazosin 4 mg tablet 4 mg PO DAILY RF: 0 venlafaxine 37.5 mg tablet 75 mg PO .am RF: 0 DESOXIMETASONE (TOPICORT CREAM) 0 TP BID Qty: 1 RF: 0 KETOCONAZOLE 2% (#NIZORAL OFF MARKET) 2 % TP BID Qty: 60 RF: 3 zinc acetate [Galzin] 50 MG capsule 50 mg PO HS Qty: 0 RF: 0 EPINEPHRINE (ADRENACLICK) 0 IJ SEE INSTRUCTIONS PRNQty: 2 RF: 11 furosemide 40 mg tablet 40 mg PO QDAY PRN (Reason: edema) Qty: 90 RF: 1 hydrochlorothiazide 12.5 mg tablet See Rx Instructions .ROUTE .COMPLEX Qty: 45 RF: 3 Hold Instructions: Home Medication placed on hold at Doctor's office albuterol sulfate [ProAir HFA] 90 mcg/actuation HFA aerosol inhaler 2 puff INHALATION Q4-6H PRN (Reason: shortness of breath or wheezing) Qty: 8.5 RF: 11 zolpidem 10 mg tablet 10 mg PO HS PRN (Reason: insomnia) Qty: 90 RF: 1 estradiol [Vagifem] 10 mcg tablet 10 mcg VAG 2XW Qty: 30 RF: 0 bupropion HCl 300 mg tablet extended release 24 hr See Rx Instructions .ROUTE .COMPLEX Qty: 90 RF: 0 dextroamphetamine-amphetamine [Adderall] 7.5 mg tablet 15 mg PO QPM RF: 0 baclofen 20 mg tablet See Rx Instructions PO TID RF: 0 rituximab IV RF: 0 gabapentin 300 mg capsule 600 mg PO DAILY RF: 0 gabapentin 300 mg capsule 900 mg PO .evening RF: 0 gabapentin 600 mg tablet 600 mg PO BEDTIME RF: 0 dextroamphetamine-amphetamine [Adderall] 7.5 mg tablet 21 mg PO DAILY RF: 0 Referrals: Grace Joshua MD [Primary Care Provider] -
--- NOTE | 2020-10-06 18:27 | DI.RAD.S_ITS ---
PROCEDURE: XR HIP W PEL IF DONE RT 2V INDICATIONS: fall pain TECHNIQUE: AP pelvis with lateral view(s) of the right hip(s). COMPARISON: None. FINDINGS: Bones: No fractures or dislocations. Pelvic ring appears intact. No suspicious bony lesions. Soft tissues: The visualized bowel gas pattern is normal. No suspicious soft tissue calcifications. Contrast in the urinary bladder. IMPRESSION: No visible fractures. Dictated by: Lauren Love M.D. on 10/06/2020 at 20:00 Approved by: Lauren Love M.D. on 10/06/2020 at 20:00
--- NOTE | 2020-10-06 18:27 | DI.RAD.S_ITS ---
PROCEDURE: XR FEMUR RT MIN 2V INDICATIONS: fall pain TECHNIQUE: Two views of the femur were acquired. COMPARISON: None. FINDINGS: Bones: No fractures or dislocations. Decreased mineralization. Moderate degenerative joint space loss and spurring in the knee joint. Mild degenerative change at the femoral acetabular joint. No suspicious bony lesions. Soft tissues: No suspicious soft tissue calcifications or masses. IMPRESSION: Intact right femur. Dictated by: Lauren Love M.D. on 10/06/2020 at 19:58 Approved by: Lauren Love M.D. on 10/06/2020 at 19:59
[2020-10-06] MEDS: methylPREDNISolone 125 MG/2 ML VIAL IV (18:41)
[2020-10-06] MEDS: diphenhydrAMINE 50 MG/ML VIAL 25 MG IV (18:41)
== END 2020-10-06 20:58 | disposition home or self-care (01) ==
PROVIDERS: Emergency Medicine; Emergency Provider Emergency Medicine; PCP Family Medicine
DX: I95.1 Orthostatic hypotension (principal); D64.9 Anemia, unspecified; G35 Multiple sclerosis; I10 Essential (primary) hypertension; G62.9 Polyneuropathy, unspecified; Z20.822 Contact with and (suspected) exposure to COVID-19
CPT/HCPCS: 36415; 70450; 70496; 70498; 71045; 73502; 73552; 80053; 81003; 82550; 83880; 84484; 85025; 85610; 85730; 87635; 93005; 93010; 96361; 96374; 96375; 99284; C9803; J1200; J2930; Q9967

== ENCOUNTER → 2020-10-15 11:16 | Outpatient (CLI) | payer OTHER, SELFPAY ==
[2020-10-15 12:20] LABS: Add Manual Diff / Slide Review NO; Basophils Absolute Auto 100 /uL (0-100); Basophils Percent Auto 1.1 % (0-2); Eosinophils Absolute Auto 100 /uL (0-450); Eosinophils Percent Auto 2.6 % (2-4); Hematocrit 26.7 % (36-46); Hemoglobin 8.9 g/dL (12.0-16.0); Lymphocytes Absolute Auto 800 /uL (1100-4500); Lymphocytes Percent Auto 15.5 % (25-40); Mean Corpuscular HGB Conc 33.3 % (30-36); Mean Corpuscular Hemoglobin 31.2 PG (26-34); Mean Corpuscular Volume 93.7 fL (80-100); Monocytes Absolute Auto 700 /uL (0-900); Monocytes Percent Auto 13.4 % (3-14); Neutrophils Absolute Auto 3600 /uL (1500-7000); Neutrophils Percent Auto 67.4 % (50-75); Platelet Count 301 X10^3/uL (150-400); Red Blood Cell Count 2.85 X10^6/uL (4.0-5.2); Red Cell Distribution Width 14.1 % (11.6-14.8); White Blood Cell Count 5.4 X10^3/uL (4.5-11.0)
[2020-10-15 12:51] LABS: HEMOLYSIS < 15 (0-50); Iron 65 ug/dL (37-170)
[2020-10-15 13:03] LABS: Percent Iron Saturation 21 % (15-50); Total Iron Binding Capacity 303 ug/dL (265-497); Transferrin 211 mg/dL (206-381)
== END ==
PROVIDERS: PCP Family Medicine; Referring Provider Family Medicine; Visit Provider Family Medicine
DX: D64.9 Anemia, unspecified (principal)
CPT/HCPCS: 36415; 83540; 83550; 85025

== ENCOUNTER → 2020-10-19 10:18 | Outpatient (CLI) | payer OTHER, SELFPAY ==
[2020-10-19 10:48] LABS: Hematocrit 29.1 % (36-46); Hemoglobin 9.6 g/dL (12.0-16.0)
[2020-10-19 10:58] LABS: Hemoglobin A1C% w Est Avg Glu 4.6 % (4.0-6.0)
[2020-10-19 11:04] LABS: Alanine Aminotransferase 16 IU/L (<35); Albumin 3.7 g/dL (3.5-5.0); Albumin Globulin Ratio 1.4 (1.0-2.8); Alkaline Phosphatase 57 U/L (38-126); Aspartate Aminotransferase 28 IU/L (14-36); BUN Creatinine Ratio 24.2 (6-22); Bilirubin Total 0.9 mg/dL (0.2-1.3); Blood Urea Nitrogen 15 mg/dL (7-17); Calcium 8.5 mg/dL (8.4-10.2); Carbon Dioxide 32 mmol/L (22-32); Chloride 102 mmol/L (98-107); Estimated Glomerular Filt Rate > 60.0 mL/min (>60); Globulin 2.6 g/dL (1.7-4.1); Glucose 91 mg/dL (80-110); HEMOLYSIS < 15 (0-50); Potassium 4.2 mmol/L (3.4-5.1); Sodium 135 mmol/L (137-145); Total Protein 6.3 g/dL (6.3-8.2)
== END ==
PROVIDERS: PCP Family Medicine; Referring Provider Family Medicine; Visit Provider Family Medicine
DX: Z13.1 Encounter for screening for diabetes mellitus (principal); D64.9 Anemia, unspecified
CPT/HCPCS: 36415; 80053; 83036; 85014; 85018

== ENCOUNTER → 2021-02-16 15:52 | Outpatient (CLI) | payer OTHER, SELFPAY ==
[2021-02-16 17:52] LABS: Hematocrit 41.4 % (36-46); Hemoglobin 13.8 g/dL (12.0-16.0); Mean Corpuscular HGB Conc 33.2 % (30-36); Mean Corpuscular Hemoglobin 29.3 PG (26-34); Mean Corpuscular Volume 88.1 fL (80-100); Platelet Count 253 X10^3/uL (150-400); White Blood Cell Count 5.8 X10^3/uL (4.5-11.0)
[2021-02-16 18:02] LABS: Alanine Aminotransferase 22 IU/L (<35); Albumin 4.3 g/dL (3.5-5.0); Albumin Globulin Ratio 1.4 (1.0-2.8); Alkaline Phosphatase 80 U/L (38-126); Aspartate Aminotransferase 35 IU/L (14-36); BUN Creatinine Ratio 26.6 (6-22); Bilirubin Total 0.8 mg/dL (0.2-1.3); Blood Urea Nitrogen 21 mg/dL (7-17); Calcium 9.3 mg/dL (8.4-10.2); Carbon Dioxide 32 mmol/L (22-32); Chloride 99 mmol/L (98-107); Estimated Glomerular Filt Rate > 60.0 mL/min (>60); Glucose 81 mg/dL (80-110); HEMOLYSIS < 15 (0-50); Potassium 4.4 mmol/L (3.4-5.1); Sodium 137 mmol/L (137-145); Total Protein 7.3 g/dL (6.3-8.2)
[2021-02-16 18:32] LABS: TSH w/ Reflex to FT4 0.78 uIU/mL (0.47-4.68)
[2021-02-16 21:10] LABS: Neutrophils Absolute Manual 3944 /uL (3000-5900); Platelet Estimate Adequate on smear; RBC Morphology Normal Morphology; Total Cells Counted 100
[2021-02-17 04:36] LABS: IGA 158 mg/dL (87-352); IGG 888 mg/dL (586-1602); IGM 50 mg/dL (26-217)
== END ==
PROVIDERS: PCP Family Medicine; Referring Provider Psychiatry & Neurology Neurology; Visit Provider Psychiatry & Neurology Neurology
DX: G35 Multiple sclerosis (principal)
CPT/HCPCS: 80053; 82784; 84443; 85025

== ENCOUNTER → 2021-07-06 11:14 | Outpatient (CLI) | payer OTHER, SELFPAY ==
[2021-07-06 12:55] LABS: Add Manual Diff / Slide Review NO; Basophils Absolute Auto 0 /uL (0-100); Eosinophils Absolute Auto 100 /uL (0-450); Eosinophils Percent Auto 2.4 % (2-4); Hematocrit 40.1 % (36-46); Hemoglobin 13.3 g/dL (12.0-16.0); Lymphocytes Absolute Auto 800 /uL (1100-4500); Lymphocytes Percent Auto 15.9 % (25-40); Mean Corpuscular HGB Conc 33.2 % (30-36); Mean Corpuscular Hemoglobin 30.1 PG (26-34); Mean Corpuscular Volume 90.8 fL (80-100); Monocytes Absolute Auto 500 /uL (0-900); Monocytes Percent Auto 9.9 % (3-14); Neutrophils Absolute Auto 3400 /uL (1500-7000); Neutrophils Percent Auto 70.8 % (50-75); Platelet Count 247 X10^3/uL (150-400); Red Blood Cell Count 4.42 X10^6/uL (4.0-5.2); Red Cell Distribution Width 13.4 % (11.6-14.8); White Blood Cell Count 4.8 X10^3/uL (4.5-11.0)
[2021-07-06 13:13] LABS: Alanine Aminotransferase 24 IU/L (<35); Albumin 4.4 g/dL (3.5-5.0); Albumin Globulin Ratio 1.8 (1.0-2.8); Alkaline Phosphatase 69 U/L (38-126); Aspartate Aminotransferase 33 IU/L (14-36); BUN Creatinine Ratio 21.7 (6-22); Bilirubin Total 0.7 mg/dL (0.2-1.3); Blood Urea Nitrogen 20 mg/dL (7-17); Calcium 9.4 mg/dL (8.4-10.2); Carbon Dioxide 30 mmol/L (22-32); Chloride 98 mmol/L (98-107); Cholesterol 250 mg/dL (140-199); Estimated Glomerular Filt Rate > 60.0 mL/min (>60); Globulin 2.4 g/dL (1.7-4.1); Glucose 85 mg/dL (80-110); HDL Cholesterol 76 mg/dL (40-60); HEMOLYSIS < 15 (0-50); LDL Cholesterol Calculated 154 mg/dL (<100); Potassium 4.5 mmol/L (3.4-5.1); Sodium 136 mmol/L (137-145); Total Protein 6.8 g/dL (6.3-8.2); Triglycerides 100 mg/dL (35-150)
== END ==
PROVIDERS: PCP Family Medicine; Referring Provider Family Medicine; Visit Provider Family Medicine
DX: I10 Essential (primary) hypertension (principal); E78.00 Pure hypercholesterolemia, unspecified
CPT/HCPCS: 36415; 80053; 80061; 85025

== ENCOUNTER → 2021-08-01 12:15 | Outpatient (CLI) | payer OTHER, SELFPAY ==
[2021-07-18 11:43] VITALS: BMI 29.1
--- NOTE | 2021-08-01 12:16 | DI.US.S_ITS ---
PROCEDURE: US ABDOMEN LIMITED INDICATIONS: POSSIBLE VENTRAL HERNIA TECHNIQUE: Real-time focused scanning was performed of the abdomen, with image documentation. COMPARISON: [facility], US, US ABDOMEN COMPLETE, 06/05/2018, 7:59. FINDINGS: Scanning is performed at the areas of clinical concern. No findings of hernia are seen. IMPRESSION: Negative for hernia by ultrasound. Dictated by: Max Rivas M.D. on 08/01/2021 at 12:09 Approved by: Max Rivas M.D. on 08/01/2021 at 12:09
== END ==
PROVIDERS: PCP Family Medicine; Referring Provider Family Medicine; Visit Provider Family Medicine
DX: K43.9 Ventral hernia without obstruction or gangrene (principal)
CPT/HCPCS: 76705

== ENCOUNTER → 2021-08-14 14:04 | Outpatient (CLI) | payer OTHER, SELFPAY ==
[2021-07-18 11:43] VITALS: BMI 29.1
--- NOTE | 2021-08-14 14:05 | DI.MG.S_ITS ---
BILATERAL DIGITAL SCREENING MAMMOGRAM 3D/2D WITH CAD: 08/14/2021 CLINICAL: Routine screening. Comparison is made to exams dated: 05/06/2015 mammogram, 10/10/2012 mammogram, and 01/06/2010 mammogram - [facility]. The tissue of both breasts is predominantly fatty. Current study was also evaluated with a Computer Aided Detection (CAD) system. No significant masses, calcifications, or other findings are seen in either breast. There has been no significant interval change. IMPRESSION: NEGATIVE There is no mammographic evidence of malignancy. A 1 year screening mammogram is recommended. This exam was interpreted at Station ID: [id number]. NOTE: For mammograms, a report in lay terms will be sent to the patient. Approximately 15% of breast malignancies will not be visualized mammographically. In the management of a palpable breast mass, a negative mammogram must not discourage biopsy of a clinically suspicious lesion. Electronically Signed By: Harley Bowers M.D., jr/harman:08/14/2021 14:43:00 letter sent: Normal Exam ACR BI-RADS Category 1: Negative [id number]
== END ==
PROVIDERS: PCP Family Medicine; Referring Provider Family Medicine; Visit Provider Family Medicine
DX: Z12.31 Encounter for screening mammogram for malignant neoplasm of breast (principal)
CPT/HCPCS: 77063; 77067

== ENCOUNTER → 2021-08-17 12:40 | Outpatient (CLI) | payer OTHER, SELFPAY ==
[2021-07-18 11:43] VITALS: BMI 29.1
[2021-08-17 13:41] LABS: COVID19 -Nasal RAPID POSITIVE (Negative)
== END ==
PROVIDERS: PCP Family Medicine; Visit Provider Physician Assistant
DX: Z20.822 Contact with and (suspected) exposure to COVID-19 (principal)
CPT/HCPCS: 87635

== ENCOUNTER → 2021-08-24 16:35 | Outpatient (CLI) | payer OTHER, SELFPAY ==
[2021-07-18 11:43] VITALS: BMI 29.1
--- NOTE | 2021-08-24 | DI.MRI.S_ITS ---
PROCEDURE: MR HEAD/BRAIN WO CON INDICATIONS: Multiple sclerosis TECHNIQUE: Noncontrast sagittal and axial FLAIR, axial and coronal T2 fast spin echo, axial VIBE, axial gradient echo, axial diffusion and ADC through the brain. After the administration of contrast, axial and coronal VIBE with fat saturation through the brain. COMPARISON: [facility], MR, MR HEAD/BRAIN WO/W CON, 07/06/2020, 9:10. [facility], MR, BRAIN W&WO CONTRAST, 04/15/2017, 13:08. [facility], MR, MR HEAD/BRAIN WO CON, 08/29/2018, 13:04. [facility], MR, BRAIN W&WO CONTRAST, 02/24/2014, 8:37. FINDINGS: Image quality: Excellent. CSF spaces: Ventricles are normal in size and shape. Basal cisterns are patent. No extra-axial fluid collections. Brain: Multiple foci of T2 weighted hyperintensity can be seen, which are primarily seen within the periventricular and deep white matter. Several juxtacortical lesions can also be seen. There is involvement of the corpus callosum. When compared to 2019, the burden of white matter lesions is not significantly progressed. No intracranial bleeds or mass effects. Chakraborty-white matter interface appears intact. No abnormal intracranial enhancement. Diffusion weighted images show no acute ischemic insults. Brainstem appears normal. Normal intravascular flow voids are present. Skull and face: Calvarial marrow signal is normal. Orbits appear normal. Sinuses: There is moderate mucosal thickening seen within the ethmoid air cells and within the right maxillary sinus. Mild mucosal thickening is seen within the left maxillary sinus. Mucous retention cysts are seen within both maxillary sinuses, left worse than right. IMPRESSION: Numerous white matter lesions are again seen, which are consistent with the given clinical history of multiple sclerosis. Compared to 2019, no significant progression of the white matter lesions can be seen. Dictated by: Max Rivas M.D. on 08/31/2021 at 10:41 Approved by: Max Rivas M.D. on 08/31/2021 at 10:44
--- NOTE | 2021-08-24 | DI.MRI.S_ITS ---
PROCEDURE: MR CERVICAL SPINE WO CON INDICATIONS: Multiple sclerosis TECHNIQUE: Noncontrast sagittal T1 spin echo and T2 fast spin echo, sagittal STIR, foraminal oblique sagittal T2 fast spin echo, and axial gradient echo or T2 fast spin echo through the cervical spine. COMPARISON: [facility], MR, MR CERVICAL SPINE WO/W CON, 07/06/2020, 9:24. [facility], MR, C-SPINE W&WO CONTRAST, 02/24/2014, 9:05. [facility], MR, C-SPINE W&WO CONTRAST, 04/15/2017, 13:33. [facility], MR, MR THORACIC SPINE WO CON, 08/24/2021, 17:07. [facility], MR, MR HEAD/BRAIN WO CON, 08/24/2021, 17:07. [facility], MR, MR CERVICAL SPINE WO CON, 08/29/2018, 13:04. FINDINGS: Image quality: This examination is limited by involuntary motion artifact. Alignment and Curvature: There is overall straightening of the normal cervical lordosis. No focal AP alignment abnormality is seen. Bone Marrow: Marrow demonstrates normal overall signal. Spinal Cord: Stable white matter lesions can be seen at the C2 level. There is also a faintly seen white matter lesion along the left or sole aspect of the spinal cord at the C5 level. No definite new lesions can be seen. Visualized spinal cord has normal size. No cerebellar tonsillar herniation. Paraspinous Soft Tissues: No paravertebral masses. Prevertebral soft tissues are normal in thickness. C2-C3: The disc height is well-preserved. Loss of disc signal is seen at this level. A mild degree of generalized disc osteophyte complex is seen. There is prominent left-sided and mild right-sided facet hypertrophy seen. There is moderate left-sided and no right-sided neural foraminal narrowing. Minimal central canal narrowing is seen. Stable from the prior study. C3-C4: The disc height is well-preserved. Loss of disc signal is seen at this level. Mild to moderate disc osteophyte complex is seen. There is a mild central disc osteophyte protrusion. Moderate facet joint hypertrophy is seen. Minimal bilateral neural foraminal narrowing can be seen. Mild central canal narrowing is seen. When comparison is made with the prior images, these findings are similar. C4-C5: The disc height is well-preserved. Loss of disc signal is seen at this level. Mild to moderate disc osteophyte complex is seen, which is eccentric to the right side. Moderate facet joint hypertrophy is seen. There is moderate right-sided and no left-sided neural foraminal narrowing seen. Mild to moderate central canal narrowing is seen. When comparison is made with the prior images, these findings are similar. C5-C6: [id number] loss of disc height and disc signal can be seen. At least moderate disc osteophyte complex is seen, which is eccentric to the right side. Moderate facet joint hypertrophy is seen. There is at least moderate right-sided and no significant left-sided neural foraminal narrowing seen. At least moderate central canal narrowing is seen. There is associated mass effect upon the ventral spinal cord. When comparison is made with the prior images, these findings are similar. C6-C7: Mild loss of disc height is seen. Loss of disc signal is seen. At least moderate disc osteophyte complex is seen. There is a central disc osteophyte protrusion seen. Mild to moderate facet hypertrophy is seen at this level. Moderate bilateral neural foraminal narrowing is seen. The least moderate central canal narrowing is seen. There is associated ventral cord flattening. When comparison is made with the prior images, these findings are similar. C7-T1: No significant abnormality is seen. IMPRESSION: Stable white matter lesions are seen, without visualization of new white matter lesions compared to 2020. Degenerative changes are seen, which are similar to the prior MRI examination and overall worst at C5-C6 and C6-C7. Dictated by: Max Rivas M.D. on 08/25/2021 at 8:55 Approved by: Max Rivas M.D. on 08/25/2021 at 9:03
--- NOTE | 2021-08-24 | DI.MRI.S_ITS ---
PROCEDURE: MR THORACIC SPINE WO CON INDICATIONS: Multiple sclerosis TECHNIQUE: Noncontrast sagittal T1 spine echo and T2 fast spin echo, sagittal STIR, axial T1 and T2 fast spin echo through the thoracic spine. COMPARISON: [facility], MR, T-SPINE W&WO CONTRAST, 04/15/2017, 13:52. [facility], MR, T-SPINE W&WO CONTRAST, 02/24/2014, 9:28. [facility], MR, MR CERVICAL SPINE WO CON, 08/24/2021, 17:07. FINDINGS: Image quality: Excellent. Alignment and Curvature: There is minimal to mild dextroconvex thoracic scoliotic curvature. Bone Marrow: Marrow is of normal overall signal. No acute vertebral body compression fractures. Spinal Cord: Visualized spinal cord is normal in size and signal. Paraspinous Soft Tissues: No paravertebral masses. There is a small hiatal hernia. Miscellaneous: Mild degenerative changes are seen throughout, with several levels of bridging anterior osteophytes. No significant neural foraminal or central canal narrowing can be seen. IMPRESSION: No thoracic cord white matter lesions are detected. A Dictated by: Max Rivas M.D. on 08/25/2021 at 9:04 Approved by: Max Rivas M.D. on 08/25/2021 at 9:06
[2021-08-24 17:54] LABS: Alanine Aminotransferase 21 IU/L (<35); Albumin 3.9 g/dL (3.5-5.0); Albumin Globulin Ratio 1.4 (1.0-2.8); Alkaline Phosphatase 75 U/L (38-126); Aspartate Aminotransferase 37 IU/L (14-36); BUN Creatinine Ratio 14.3 (6-22); Bilirubin Total 0.4 mg/dL (0.2-1.3); Blood Urea Nitrogen 11 mg/dL (7-17); Calcium 8.8 mg/dL (8.4-10.2); Carbon Dioxide 27 mmol/L (22-32); Chloride 103 mmol/L (98-107); Estimated Glomerular Filt Rate > 60.0 mL/min (>60); Globulin 2.7 g/dL (1.7-4.1); Glucose 77 mg/dL (80-110); HEMOLYSIS < 15 (0-50); Potassium 4.5 mmol/L (3.4-5.1); Sodium 137 mmol/L (137-145); Total Protein 6.6 g/dL (6.3-8.2)
[2021-08-24 18:09] LABS: Add Manual Diff / Slide Review NO; Basophils Absolute Auto 0 /uL (0-100); Basophils Percent Auto 0.7 % (0-2); Eosinophils Absolute Auto 200 /uL (0-450); Eosinophils Percent Auto 5.9 % (2-4); Hematocrit 39.5 % (36-46); Hemoglobin 13.3 g/dL (12.0-16.0); Lymphocytes Absolute Auto 1000 /uL (1100-4500); Lymphocytes Percent Auto 25.5 % (25-40); Mean Corpuscular HGB Conc 33.6 % (30-36); Mean Corpuscular Hemoglobin 30.1 PG (26-34); Mean Corpuscular Volume 89.5 fL (80-100); Monocytes Absolute Auto 500 /uL (0-900); Monocytes Percent Auto 13.9 % (3-14); Neutrophils Absolute Auto 2100 /uL (1500-7000); Platelet Count 227 X10^3/uL (150-400); Red Blood Cell Count 4.41 X10^6/uL (4.0-5.2); Red Cell Distribution Width 13.3 % (11.6-14.8); White Blood Cell Count 3.9 X10^3/uL (4.5-11.0)
[2021-08-25 06:08] LABS: IGA 130 mg/dL (87-352); IGG 791 mg/dL (586-1602); IGM 35 mg/dL (26-217)
== END ==
PROVIDERS: PCP Family Medicine; Referring Provider Psychiatry & Neurology Neurology; Visit Provider Psychiatry & Neurology Neurology
DX: G35 Multiple sclerosis (principal); M47.814 Spondylosis without myelopathy or radiculopathy, thoracic region; M47.812 Spondylosis without myelopathy or radiculopathy, cervical region; Z79.899 Other long term (current) drug therapy
CPT/HCPCS: 36415; 70551; 72141; 72146; 80053; 82784; 85025